=== PATIENT | female | born 1930 | race Caucasian/White ===

== ENCOUNTER → 2017-09-06 | Outpatient (CLI) | payer MEDICARE, OTHER ==
[~2017-09-06] MED LIST: ADULT LOW DOSE81 MG PO; ATORVASTATIN CA40 MG PO; CALCIUM 600 +1 EAC7 PO; CARAFATE 1 GM TA1 G1 PO; Calcium PO; EASY-LAX100 MG PO; FISH OIL 1,0001 EAC5 PO; FISH OIL 1,001000 M2 PO; FISH OIL 500 M1 EAC1 PO; IRON325 PO; MIRALAX17 GM PO; MOBIC15 MG PO; NORVASC10 MG PO; NORVASC5 MG PO; PANTOPRAZOLE SO40 M1 PO; PRILOSEC40 MG PO; RECLAST 55 MG/1002 IV; VITAMIN D3400 UNIT PO; VITAMINC500 PO
== END ==
LOC: M.RAD 10:43
DX: M06.842 Other specified rheumatoid arthritis, left hand (principal); M06.841 Other specified rheumatoid arthritis, right hand; M81.0 Age-related osteoporosis without current pathological fracture

== ENCOUNTER → 2017-09-14 | Outpatient (CLI) | payer MEDICARE, OTHER | LOC: M.RAD 13:25 | DX: M81.0 Age-related osteoporosis without current pathological fracture (principal); M06.4 Inflammatory polyarthropathy; Z78.0 Asymptomatic menopausal state ==

== ENCOUNTER 2019-07-27 10:58 | Inpatient (IN) | payer OTHER ==
[~2019-07-27] VITALS: Ht 157.5 cm; Wt 51.3 kg
[2019-07-27 11:14] VITALS: BP 175/109
[2019-07-27] MEDS ORDERED: PLAQUENIL200 MG PO (11:22)
[2019-07-27] MEDS ORDERED: TOPROL XL25 MG PO (11:22)
[2019-07-27] MEDS ORDERED: MELOXICAM7.5 MG PO (11:22)
[2019-07-27 12:12] LABS: HEMATOCRIT 42.9 % (37.0-47.0); HEMOGLOBIN 14.9 gm/dL (12.0-15.0); MCH 31.7 pg (26.0-34.0); MCHC 34.7 g/dL (28.0-37.0); MCV 91.4 fL (80.0-100.0); MPV 7.7 fl. (7.2-11.1); NUCLEATED RBCS 0 /100WBC; PLATELET COUNT* 277 thou/uL (150-400); RBC 4.69 mil/uL (4.20-5.00); WBC 10.2 thou/uL (4.0-11.0)
[2019-07-27 12:20] LABS: CALCIUM 9.3 mg/dL (8.5-10.1); CREATININE 1.3 mg/dL (0.6-1.3); POTASSIUM 4.5 mmol/L (3.5-5.1)
[2019-07-27 12:21] LABS: APTT 23.3 Seconds (25.0-31.3); INR 1.1; PROTIME 11.7 Seconds (9.20-11.50)
[2019-07-27 12:25] LABS: ALBUMIN 3.5 g/dL (3.4-5.0); TOTAL PROTEIN 7.5 g/dL (6.4-8.2)
[2019-07-27 13:18] LABS: ABSOLUTE LYMPHOCYTES 0.3 thou/uL (0.8-5.3); ABSOLUTE MONOCYTES 0.3 thou/uL (0.0-1.2); ABSOLUTE NEUTROPHILS 9.6 thou/uL (1.6-8.1); PLATELET ESTIMATE ADEQUATE
[2019-07-27 13:19] LABS: ANISOCYTOSIS 1+; POIKILOCYTOSIS 1+
[2019-07-27 17:40] LABS: URINE BLOOD TRACE (Negative); URINE CLARITY CLEAR; URINE COLOR YELLOW; URINE GLUCOSE-RANDOM NEGATIVE (Negative); URINE KETONES TRACE (Negative); URINE LEUKOCYTES-REFLEX TRACE (Negative); URINE NITRITE-REFLEX NEGATIVE (Negative); URINE PROTEIN 1+ (Negative); URINE SPECIFIC GRAVITY 1.025 (1.005-1.030)
[2019-07-27 17:42] LABS: ICTOTEST (BILI CONFIRMATORY) Negative (Negative); URINE BILIRUBIN 1+ (Negative)
[2019-07-27 17:48] LABS: BACTERIA-REFLEX >30 Many /HPF (None Seen); CRYSTALS None Seen /LPF (None Seen); HYALINE CASTS 4-10 Moderate /LPF (None Seen); SQUAMOUS 4-10 Moderate /LPF (0-3); URINE RBC None Seen /HPF (0-2); URINE WBC-REFLEX 6-15 Few /HPF (0-5)
[2019-07-27 18:27] VITALS: BP 115/61
[2019-07-27 19:00] VITALS: BP 153/70
[2019-07-27 22:01] VITALS: BP 183/93
[2019-07-27 23:00] VITALS: BP 157/76
[2019-07-28] VITALS (23 sets, daily range): BP systolic 127–208; BP diastolic 46–109
[2019-07-28] MEDS ORDERED: LATANOPROST 0.2.5 ML OPHTHALMIC (01:40)
[2019-07-28] MEDS ORDERED: COSOPT OCUMETER10 M1 OPHTHALMIC (01:47)
[2019-07-28] MEDS ORDERED: THERA TEARS15 ML OPHTHALMIC (01:49)
[2019-07-28 04:18] LABS: HEMATOCRIT 37.9 % (37.0-47.0); MCH 31.3 pg (26.0-34.0); MCHC 34.2 g/dL (28.0-37.0); MCV 91.4 fL (80.0-100.0); MPV 7.6 fl. (7.2-11.1); RBC 4.15 mil/uL (4.20-5.00); RDW-CV 13.9 % (10.5-14.5); WBC 7.8 thou/uL (4.0-11.0)
[2019-07-28 04:49] LABS: ALBUMIN 2.8 g/dL (3.4-5.0); CREATININE 0.9 mg/dL (0.6-1.3); MAGNESIUM 1.7 mg/dL (1.8-2.4); PHOSPHORUS* 3.5 mg/dL (2.5-4.9); TOTAL BILIRUBIN 0.6 mg/dL (<0.1-1.0); TOTAL PROTEIN 6.1 g/dL (6.4-8.2)
--- NOTE | 2019-07-28 16:46 | CON ---
[address] [address] CONSULTATION Name: KALEY TAPIA Room: [address] IN M.R.#: [id number] Admission: 07/27/19 Attend Phys: Jer Chakraborty Discharge: Date of : 30 Report #: [id number] THIS REPORT FOR: //name// cc: Omi Tinoco MD, Dean L. MD ~ THIS REPORT FOR: //name// CC: Omi Solomon CARDIOLOGY CONSULTATION HISTORY OF PRESENT ILLNESS: The patient is an 88-year-old single white female who I was asked to see in the hospital after she is noted to have an abnormal troponin. The patient has no previous history of heart disease. She stays fairly active. She does have a long history of falling. She apparently has had brief loss of consciousness in the past as well. However, she has no history of heart attack, chest pain, dyspnea or palpitations. The patient was brought to the Emergency Room yesterday by a friend and was noted to have abdominal pain and diarrhea. She felt weak. She was found to have a small bowel obstruction. Cardiology consultation was requested when her troponin is noted to be elevated. PAST MEDICAL HISTORY: She has had previous small bowel obstructions. She had surgery for colon cancer. She has glucose intolerance, hypertension. MEDICATIONS: On admission consist of metoprolol, Plaquenil, Lipitor, amlodipine, Protonix. FAMILY HISTORY: Her father had heart disease. She has a son who had stents. SOCIAL HISTORY: She lives by herself in [place]. Quit smoking years ago. No alcohol abuse. REVIEW OF SYSTEMS: She has had no history of stroke, asthma, peptic ulcer disease, liver disease, kidney disease, psychiatric illness or chronic skin condition. PHYSICAL EXAMINATION: GENERAL: Revealed an elderly frail appearing female, lying in bed. She appeared in mild distress secondary to abdominal pain. VITAL SIGNS: Her blood pressure was 140/80, pulse is 110. She is afebrile. HEENT: She was anicteric. Conjunctivae are pink. Mucous membranes moist. NECK: Veins did not appear distended. CHEST: Clear to auscultation. CARDIOVASCULAR: Regular, tachycardia. No significant murmur. ABDOMEN: Firm, tender to palpation. EXTREMITIES: Had no edema. Posterior tibial pulse 1+ bilaterally. SKIN: Cool and dry. NEUROLOGIC: Nonfocal. RADIOLOGICAL DATA: Her ECG on admission showed a sinus tachycardia, left axis deviation, septal Q-waves noted. She actually had a nuclear stress test in 2015 here at [place] that showed no evidence of ischemia. Previous echocardiogram showed no evidence of decreased ejection fraction. Her workup so far includes the following lab work: Her sodium 138, BUN 19, creatinine 0.9. Liver function studies were normal. Her troponin minimally elevated at 0.39. BNP 519. Her white blood cell count 7.8, hemoglobin 13. Her x-rays yesterday in the Emergency Room, she had an abdominal series that showed small bowel obstruction. Her chest x-ray, hyperinflated lung navas, normal heart size. IMPRESSION AND RECOMMENDATIONS: 1. Small bowel obstruction. Recommend urgent surgery. 2. History of falling. Previous workup showed no significant heart disease. 3. History of colon cancer. 4. Hypertension. The patient has been on calcium jack. 5. Borderline elevated troponin. Suspect non-myocardial infarction related borderline elevation of troponin. I would recommend no further cardiac evaluation or cardiac medications prior to her surgery. I believe the patient is at moderate risk for coronary events with urgent surgery because of her advanced age and risk factors. <ELECTRONICALLY SIGNED> By: Dakotah Dalal MD, [facility] 07/28/19 1646 0908 [id number] Dalal MD, JOZEFC /nt
[2019-07-29] VITALS (24 sets, daily range): BP systolic 122–175; BP diastolic 30–78
[2019-07-29 04:34] LABS: ABSOLUTE LYMPHOCYTES 0.5 thou/uL (0.8-5.3); ABSOLUTE MONOCYTES 0.7 thou/uL (0.0-1.2); ABSOLUTE NEUTROPHILS 9.8 thou/uL (1.6-8.1); BASOPHILS 0.1 %; HEMOGLOBIN 12.5 gm/dL (12.0-15.0); LYMPHOCYTES 4.5 %; MCH 31.6 pg (26.0-34.0); MCHC 33.7 g/dL (28.0-37.0); MCV 93.9 fL (80.0-100.0); MONOCYTES 5.9 %; MPV 7.4 fl. (7.2-11.1); NUCLEATED RBCS 0 /100WBC; PLATELET COUNT* 202 thou/uL (150-400); POLYS 89.5 %; RBC 3.94 mil/uL (4.20-5.00); RDW-CV 13.8 % (10.5-14.5); WBC 10.9 thou/uL (4.0-11.0)
[2019-07-29 04:35] LABS: ALBUMIN 2.6 g/dL (3.4-5.0); CREATININE 0.8 mg/dL (0.6-1.3); TOTAL BILIRUBIN 0.6 mg/dL (<0.1-1.0); TOTAL PROTEIN 5.3 g/dL (6.4-8.2)
[2019-07-30] VITALS (18 sets, daily range): BP systolic 106–170; BP diastolic 25–68
[2019-07-30 04:59] LABS: CALCIUM 8.3 mg/dL (8.5-10.1); CREATININE 0.8 mg/dL (0.6-1.3); PHOSPHORUS* 3.1 mg/dL (2.5-4.9); POTASSIUM 3.6 mmol/L (3.5-5.1)
[2019-07-30 05:30] LABS: HEMATOCRIT 29.8 % (37.0-47.0); MCH 31.7 pg (26.0-34.0); MCHC 33.9 g/dL (28.0-37.0); MCV 93.6 fL (80.0-100.0); MPV 7.7 fl. (7.2-11.1); RBC 3.18 mil/uL (4.20-5.00); RDW-CV 14.1 % (10.5-14.5); WBC 7.8 thou/uL (4.0-11.0)
[2019-07-30 05:38] LABS: HEMOGLOBIN 10.1 gm/dL (12.0-15.0)
[2019-07-31] VITALS (19 sets, daily range): BP systolic 165–234; BP diastolic 78–117
[2019-07-31 09:52] LABS: HEMATOCRIT 34.2 % (37.0-47.0); HEMOGLOBIN 11.3 gm/dL (12.0-15.0); MCH 31.5 pg (26.0-34.0); MCV 95.5 fL (80.0-100.0); MPV 7.3 fl. (7.2-11.1); RBC 3.58 mil/uL (4.20-5.00); RDW-CV 14.5 % (10.5-14.5); WBC 9.4 thou/uL (4.0-11.0)
[2019-07-31 10:02] LABS: CALCIUM 8.6 mg/dL (8.5-10.1); CREATININE 0.6 mg/dL (0.6-1.3); MAGNESIUM 1.5 mg/dL (1.8-2.4); PHOSPHORUS* 2.3 mg/dL (2.5-4.9); POTASSIUM 3.2 mmol/L (3.5-5.1)
--- NOTE | 2019-07-31 16:22 | 2DMMODE ---
[place] [address] 2 D/M-MODE ECHOCARDIOGRAM Name: KALEY TAPIA Madelin [facility] IN .R.#: [id number] Admission: 07/27/19 Attend Phys: Geo Solomon Discharge: Date of : 30 Date of Service: 07/31/19 1621 Report #: [id number] THIS REPORT FOR: cc: Omi Tinoco MD, Dean L. MD Blick,Dakotah Izquierdo MD [facility] ~ THIS REPORT FOR: //name// APPROVED REPORT Study performed: 07/31/2019 09:33:04 EXAM: Comprehensive 2D, Doppler, and color-flow Echocardiogram Patient Location: In-Patient Room #: 006 Status: routine BSA: 1.43 HR: 121 bpm BP: 189/88 mmHg Rhythm: Atrial Fibrillation Other Information Study Quality: Excellent Indications Atrial Fibrillation Hypertension/HDD 2D Dimensions IVSd: 7.77 (7-11mm) LVOT Diam: 18.95 (18-24mm) LVDd: 36.95 mm PWd: 7.12 (7-11mm) Ascending Ao: 27.98 (22-36mm) LVDs: 22.49 (25-40mm) Aortic Root: 29.55 mm Volumes Left Atrial Volume (Systole) LA ESV Index: 46.60 mL/m2 Aortic Valve AoV Peak Jaya.: 1.15 m/s AO Peak Gr.: 5.28 mmHg LVOT Max P.13 mmHg AO Mean Gr.: 3.01 mmHg LVOT Mean P.03 mmHg LVOT Max V: 0.73 m/[place] [address] 2 D/M-MODE ECHOCARDIOGRAM Name: KALEY TAPIA Room: [address] IN ..#: [id number] Admission: 07/27/19 Attend Phys: Geo Solomon Discharge: Date of : 30 Date of Service: 07/31/19 1621 Report #: [id number] AO V2 VTI: 16.52 cm LVOT Mean V: 0.47 m/s ANGELINA (VTI): 2.19 cm2 LVOT V1 VTI: 12.81 cm TDI Medial E' Jaya.: 0.11 m/s Pulmonary Valve PV Peak Jaya.: 0.82 m/s PV Peak Gr.: 2.68 mmHg Tricuspid Valve RAP Estimate: 5.00 mmHg TR Peak Gr.: 40.70 mmHg RVSP: 45.00 mmHg PA Pressure: 45.00 mmHg Left Ventricle The left ventricle is normal size. There is normal LV segmental wall motion. There is normal left ventricular wall thickness. Left ventricular systolic function is normal. The left ventricular ejection fraction is within the normal range. LVEF is 60-65%. Right Ventricle Right ventricle is dilated. The right ventricular systolic function is normal. Atria Left atrium is moderately dilated. Right atrium is dilated. Aortic Valve Mild aortic valve sclerosis. No aortic regurgitation is present. There is no aortic valvular stenosis. Mitral Valve There is mitral annular calcification. Moderate mitral regurgitation. No evidence of mitral valve stenosis. Tricuspid Valve The tricuspid valve is normal in structure. Mild tricuspid regurgitation. estimated pa pressure 30 mm Hg Pulmonic Valve The pulmonary valve is normal in structure. Trace pulmonic regurgitation. Great Vessels The aortic root is normal in size. IVC is normal in size and collapses >50% [place] [address] 2 D/M-MODE ECHOCARDIOGRAM Name: KALEY TAPIA Room: [address] IN .R.#: [id number] Admission: 07/27/19 Attend Phys: Geo Solomon Discharge: Date of : 30 Date of Service: 07/31/19 1621 Report #: [id number] Pericardium There is no pericardial effusion. Left pleural effusion. <Conclusion> LVEF is 60-65%. Left atrium is moderately dilated. Mild aortic valve sclerosis. Moderate mitral regurgitation. Mild tricuspid regurgitation. estimated pa pressure 30 mm Hg Left pleural effusion. <ELECTRONICALLY SIGNED> By: Dakotah Dalal MD, FACC 07/31/19 1621 162 20 Dakotah Dalal MD, [facility] /INF
[2019-08-01] VITALS (13 sets, daily range): BP systolic 120–164; BP diastolic 63–93
--- NOTE | 2019-08-01 09:07 | PATH ---
[facility] [address] [place] [address] PATHOLOGY RPT PROCEDURE Name: WILLIECARMEN Madelin Room: [address] IN M.R.#: [id number] Admission: 07/27/19 Date of : 30 Discharge: Report #: [id number] Path Case #: [id number] [facility] Accession Number: [id number] . 01 Material submitted: . small intestine - SMALL INTESTINE . 01 Clinical history: . Small bowel obstruction. . 02 Diagnosis: Small intestine: - Two segments of benign small intestine with evidence of obstruction in longer segment including luminal dilatation, transmural fresh hemorrhage and acute and chronic serositis. . (ROMAN:[place]; 07/31/2019) QMS 07/31/2019 1103 Local . 02 Electronically signed: . Max Mandel MD, Pathologist NPI- [id number] . 01 Gross description: . Received in formalin labeled "Carmen Tapia, small intestine" is an unoriented segment of bowel measuring 45.7 cm in length. The margins are closed with staple lines. Adjacent to one staple line margin is a segment of pink-carter unremarkable serosa measuring 2.2 cm in length, with a diameter of 2.0 cm. The remainder of the serosa is red-brown and hemorrhagic/dusky and has a diameter of 3.5 cm. The specimen is opened to reveal carter-brown grossly viable mucosa. The mucosa in the dilated area appears more flattened. No areas of obstruction or masses are grossly identified. Also present within the container is an irregular unoriented portion of bowel measuring 3.8 cm in length and 1.2 cm in diameter. Focal areas of rachael are present, without definitive margins identified. Electrical Lineworker sections of the specimen are submitted as follows: A1-A2 staple line margin A3 transition of nondilated to dilated bowel wall A4 additional dilated bowel wall A5 software support representative separate segment of bowel ([facility]; 07/30/2019) [facility] 07/30/2019 1117 Local . 02 Pathologist provided ICD-10: K56.609, K65.8 . 02 CPT . 764509 Specimen Comment: A courtesy copy of this report has been sent to [phone] [address] PATHOLOGY RPT PROCEDURE Name: CARMEN TAPIA Room: [address] IN M.R.#: [id number] Admission: 07/27/19 Date of : 30 Discharge: Report #: [id number] Path Case #: [id number] Specimen Comment: [id number], Specimen Comment: Report sent to , and Specimen Comment: A duplicate report has been generated due to demographic updates. Performed at: [id number] [facility] [address], [place] [id number] MD Jax Ortega MD Phone: [phone] Performed at: [address] [facility] [address], [place], [place] [id number] MD Max Mandel MD Phone: [phone]
[2019-08-01 17:26] LABS: ALBUMIN 2.5 g/dL (3.4-5.0); CALCIUM 8.2 mg/dL (8.5-10.1); CREATININE 0.7 mg/dL (0.6-1.3); POTASSIUM 4.4 mmol/L (3.5-5.1); TOTAL BILIRUBIN 0.8 mg/dL (<0.1-1.0); TOTAL PROTEIN 5.4 g/dL (6.4-8.2)
[2019-08-01 20:41] LABS: ABSOLUTE EOSINOPHILS 0.1 thou/uL (0.0-0.7); ABSOLUTE LYMPHOCYTES 0.6 thou/uL (0.8-5.3); ABSOLUTE MONOCYTES 0.5 thou/uL (0.0-1.2); ABSOLUTE NEUTROPHILS 4.7 thou/uL (1.6-8.1); BASOPHILS 0.8 %; EOSINOPHILS 2.3 %; HEMATOCRIT 31.9 % (37.0-47.0); HEMOGLOBIN 11.2 gm/dL (12.0-15.0); LYMPHOCYTES 10.4 %; MCH 32.1 pg (26.0-34.0); MCHC 35.1 g/dL (28.0-37.0); MCV 91.4 fL (80.0-100.0); MONOCYTES 7.6 %; MPV 7.3 fl. (7.2-11.1); NUCLEATED RBCS 0 /100WBC; PLATELET COUNT* 269 thou/uL (150-400); POLYS 78.9 %; RBC 3.49 mil/uL (4.20-5.00); RDW-CV 14.1 % (10.5-14.5)
[2019-08-02] VITALS (35 sets, daily range): BP systolic 123–172; BP diastolic 59–125
[2019-08-02 04:18] LABS: HEMATOCRIT 28.6 % (37.0-47.0); HEMOGLOBIN 9.9 gm/dL (12.0-15.0); MCH 31.8 pg (26.0-34.0); MCHC 34.5 g/dL (28.0-37.0); MCV 92.3 fL (80.0-100.0); RBC 3.1 mil/uL (4.20-5.00); WBC 6.3 thou/uL (4.0-11.0)
[2019-08-02 10:20] LABS: CALCIUM 8.1 mg/dL (8.5-10.1); CREATININE 0.8 mg/dL (0.6-1.3); MAGNESIUM 1.7 mg/dL (1.8-2.4); PHOSPHORUS* 2.5 mg/dL (2.5-4.9); POTASSIUM 3.8 mmol/L (3.5-5.1)
[2019-08-03] VITALS: BP 116/74
[2019-08-03 04:00] VITALS: BP 148/93
[2019-08-03 08:00] VITALS: BP 155/86
[2019-08-03 10:44] LABS: ABSOLUTE EOSINOPHILS 0.2 thou/uL (0.0-0.7); ABSOLUTE LYMPHOCYTES 0.6 thou/uL (0.8-5.3); ABSOLUTE MONOCYTES 0.5 thou/uL (0.0-1.2); ABSOLUTE NEUTROPHILS 5.5 thou/uL (1.6-8.1); BASOPHILS 0.5 %; EOSINOPHILS 2.8 %; HEMATOCRIT 31.8 % (37.0-47.0); HEMOGLOBIN 10.9 gm/dL (12.0-15.0); LYMPHOCYTES 8.4 %; MCH 31.5 pg (26.0-34.0); MCHC 34.3 g/dL (28.0-37.0); MCV 91.7 fL (80.0-100.0); MONOCYTES 7.5 %; MPV 7.4 fl. (7.2-11.1); NUCLEATED RBCS 0 /100WBC; PLATELET COUNT* 322 thou/uL (150-400); POLYS 80.8 %; RBC 3.46 mil/uL (4.20-5.00); RDW-CV 13.9 % (10.5-14.5); WBC 6.8 thou/uL (4.0-11.0)
[2019-08-03 11:11] LABS: ALBUMIN 2.2 g/dL (3.4-5.0); CALCIUM 7.9 mg/dL (8.5-10.1); CREATININE 0.8 mg/dL (0.6-1.3); POTASSIUM 3.4 mmol/L (3.5-5.1); TOTAL BILIRUBIN 0.5 mg/dL (<0.1-1.0); TOTAL PROTEIN 5.4 g/dL (6.4-8.2)
[2019-08-03 12:00] VITALS: BP 145/53
[2019-08-03 16:00] VITALS: BP 153/57
[2019-08-03 20:07] VITALS: BP 127/53
[2019-08-04] VITALS (165 sets, daily range): BP systolic 103–151; BP diastolic 34–95
[2019-08-04 10:10] LABS: ABSOLUTE EOSINOPHILS 0.2 thou/uL (0.0-0.7); ABSOLUTE LYMPHOCYTES 0.6 thou/uL (0.8-5.3); ABSOLUTE MONOCYTES 0.5 thou/uL (0.0-1.2); ABSOLUTE NEUTROPHILS 3.3 thou/uL (1.6-8.1); BASOPHILS 0.9 %; EOSINOPHILS 3.4 %; HEMATOCRIT 23.7 % (37.0-47.0); LYMPHOCYTES 12.6 %; MCH 31.5 pg (26.0-34.0); MCHC 34.1 g/dL (28.0-37.0); MCV 92.4 fL (80.0-100.0); MONOCYTES 11.8 %; MPV 7.4 fl. (7.2-11.1); NUCLEATED RBCS 0 /100WBC; POLYS 71.3 %; RBC 2.57 mil/uL (4.20-5.00); RDW-CV 13.8 % (10.5-14.5); WBC 4.6 thou/uL (4.0-11.0)
[2019-08-04 10:11] LABS: HEMOGLOBIN 8.1 gm/dL (12.0-15.0); PLATELET COUNT* 225 thou/uL (150-400)
[2019-08-04 10:28] LABS: ALBUMIN 1.7 g/dL (3.4-5.0); CALCIUM 7.1 mg/dL (8.5-10.1); CREATININE 0.7 mg/dL (0.6-1.3); MAGNESIUM 1.5 mg/dL (1.8-2.4); POTASSIUM 3.8 mmol/L (3.5-5.1); TOTAL BILIRUBIN 0.3 mg/dL (<0.1-1.0); TOTAL PROTEIN 4.4 g/dL (6.4-8.2)
--- NOTE | 2019-08-04 14:11 | OP ---
[address] [address] OPERATIVE REPORT Name: KALEY TAPIA Room: [address] IN M.R.#: [id number] Admission: 07/27/19 Attend Phys: Jer Chakraborty Discharge: Date of : 30 Report #: [id number] THIS REPORT FOR: //name// cc: Omi Tinoco MD, Dean L. MD ~ THIS REPORT FOR: //name// CC: Omi Solomon DATE OF SERVICE: 07/28/2019 SURGEON: Kt Choe DO DINING SERVICE SUPERVISOR: Dr. Clari Fuller. PREOPERATIVE DIAGNOSIS: Small bowel obstruction. POSTOPERATIVE DIAGNOSIS: Small bowel obstruction. PROCEDURE: Exploratory laparotomy, lysis of adhesions, small bowel resection, small bowel reanastomosis. INDICATIONS: The patient is an 88-year-old female who presented to the Emergency Department with complaints of abdominal pain. She states her bowel function seized 2-3 days prior to presentation. She has a history of a prior colon resection and hysterectomy. CT scan was consistent with a high-grade bowel obstruction. Physical exam revealed a soft, but distended and diffusely tender abdomen. Surgery was indicated. Risks and benefits were explained in detail. Risks, benefits, and alternatives were discused. Risks of bleeding, infection, hernia, damage to nearby structures, small bowel resection, anastomotic leak, DVT, PE, pneumonia, stroke, ND and were reviewed. DESCRIPTION OF PROCEDURE: The patient was taken to the operating theater and placed in the supine position. General anesthesia was induced without complication. Preoperative antibiotics were given and bilateral SCDs were placed. The abdomen was prepped and draped in the standard sterile fashion. Timeout was performed and all were in agreement. A 10 blade scalpel was used to make a midline celiotomy incision. Dissection was carried down to the midline fascia using electrocautery. The fascia was scored with cautery and elevated. The abdomen was entered bluntly. There were several dense adhesions to her anterior abdominal wall. These were taken down with sharp dissection using Metzenbaum scissors. Once the anterior abdominal wall adhesions were taken down with sharp dissection, [place] [address] OPERATIVE REPORT Name: KALEY TAPIA Room: [address] IN [facility].#: [id number] Admission: 07/27/19 Attend Phys: Jer Chakraborty Discharge: Date of : 30 Report #: [id number] remainder of the incision was opened. Next, the small bowel was run from the ligament of Treitz to the cecum. The small bowel was grossly distended proximally. There was some reactive fluid in all four quadrants of her abdomen. We were able to follow the distended bowel distally to a transition point in her left lower quadrant. There was an adehsive band causing the obstruction. The lysis of this adhesion was performed and the remainder of the small bowel was run to the cecum. No small bowel injuries were present. No enterotomies were made. The mesentery was intact. The small bowel was again run from the ligament of Treitz to the cecum. The area where the transition point was, had a circumferential white and black band concerning for nectrotic intestine. The decision was made to do a small bowel resection. This was done using a [id number] functional end-to-end anastomosis using KALPESH staplers. Mesenteric window was made proximal and distal to the area of concern and the small bowel was transected using a KALPESH stapler with a purple load proximal and distal. Next, the mesentery was taken using a LigaSure device. Next, the specimen was removed from the surgical field and the small bowel was lined up for anastomosis. A crotch stitch was placed using 3-0 silk. The two corners of the stapled bowel were grasped with Allises and the stapled corners were cut off using Metzenbaum scissors. The common channel was created using a KALPESH purple load stapler. Next, the common channel opening was grasped with Allis clamps and closed using a TA stapler. The TA staple line was oversewn using multiple 3-0 silks in a Lembert fashion. The anastomosis was then palpated and was patent. There was a very small area on the proximal side of the anastomosis that appeared little darker than the surrounding tissue but this was intermittent and when we reevaluated it, the area regained its pink color. It was warm to the touch. Gloves were changed and the abdominal cavity was irrigated with warm saline until the fluid ran clear and then it was suctioned out. The abdomen was hemostatic. Next, the fascia was closed using a #1 PDS suture in a running fashion. The midline wound was irrigated. The skin was closed with rachael. This concluded the procedure. All sponge, needle and instrument counts were correct x 2. ESTIMATED BLOOD LOSS: Less than 5 mL. FINDINGS: Small bowel obstruction, adhesions. [address] [address] OPERATIVE REPORT Name: KALEY TAPIA Room: [address] IN M.R.#: [id number] Admission: 07/27/19 Attend Phys: Jer Chakraborty Discharge: Date of : 30 Report #: [id number] SPECIMEN: Small bowel. DRAINS: None. ANESTHESIA: General endotracheal anesthesia. DISPOSITION: The patient was extubated in the operating theater and taken back to the ICU in stable condition. <ELECTRONICALLY SIGNED> By: Kt Choe DO 08/04/19 1411 2141 220Kt Choe DO /nt
[2019-08-05 04:05] LABS: ABSOLUTE BASOPHILS 0.1 thou/uL (0.0-0.2); ABSOLUTE EOSINOPHILS 0.2 thou/uL (0.0-0.7); ABSOLUTE LYMPHOCYTES 0.7 thou/uL (0.8-5.3); ABSOLUTE MONOCYTES 0.6 thou/uL (0.0-1.2); ABSOLUTE NEUTROPHILS 3.7 thou/uL (1.6-8.1); EOSINOPHILS 3.4 %; HEMATOCRIT 24.1 % (37.0-47.0); LYMPHOCYTES 12.4 %; MCH 30.7 pg (26.0-34.0); MCHC 33.2 g/dL (28.0-37.0); MCV 92.5 fL (80.0-100.0); MONOCYTES 12.3 %; MPV 7.9 fl. (7.2-11.1); NUCLEATED RBCS 0 /100WBC; PLATELET COUNT* 218 thou/uL (150-400); POLYS 70.9 %; RDW-CV 13.8 % (10.5-14.5); WBC 5.3 thou/uL (4.0-11.0)
[2019-08-05 04:17] LABS: CALCIUM 7.2 mg/dL (8.5-10.1); MAGNESIUM 1.5 mg/dL (1.8-2.4); PHOSPHORUS* 2.9 mg/dL (2.5-4.9); POTASSIUM 4.3 mmol/L (3.5-5.1)
[2019-08-05 07:00] VITALS: BP 134/44
[2019-08-05 12:00] VITALS: BP 135/42
--- NOTE | 2019-08-05 13:19 | CARD ---
[facility] [address] [place] [address] CARDIAC CATH REPORT Name: KALEY TAPIA Room: [address] IN M.R.#: [id number] Admission: 07/27/19 Attend Phys: Jer Chakraborty Discharge: Date of : 30 Report #: [id number] THIS REPORT FOR: //name// cc: Omi Tinoco MD, Dean L. MD ~ THIS REPORT FOR: //name// CC: Omi Solomon DATE OF SERVICE: 08/04/2019 TITLE OF PROCEDURE: Direct current cardioversion of atrial tachycardia. INDICATIONS: Direct current cardioversion was requested in this patient with a history of atrial tachycardia. DESCRIPTION OF PROCEDURE: The patient had remained in persistent atrial tachycardia despite Eliquis and sotalol. It was felt that the risk of the HARPER outweighed any benefit because of her advanced age and recent surgery. It was decided to proceed with direct current cardioversion. Hands free patches were applied in anterior and posterior location. The patient was given 1 mg of Versed for sedation. 100 joules of direct current energy using synchronized energy was performed. The patient was noted to convert from atrial tachycardia to sinus bradycardia. The patient tolerated the procedure well. IMPRESSION: Successful direct current cardioversion of atrial tachycardia to sinus bradycardia. <ELECTRONICALLY SIGNED> By: Dakotah Dalal MD, [facility] 08/05/19 1319 0842 0852Daed Dalal MD, [facility] /nt
[2019-08-05 18:20] VITALS: BP 138/48
[2019-08-05 22:16] VITALS: BP 138/44
[2019-08-05 23:54] VITALS: BP 133/49
[2019-08-06 03:36] LABS: HEMATOCRIT 24.5 % (37.0-47.0); HEMOGLOBIN 8.4 gm/dL (12.0-15.0); MCH 31.5 pg (26.0-34.0); MCHC 34.1 g/dL (28.0-37.0); MCV 92.2 fL (80.0-100.0); RBC 2.65 mil/uL (4.20-5.00); RDW-CV 14.2 % (10.5-14.5); WBC 6.2 thou/uL (4.0-11.0)
[2019-08-06 03:48] LABS: CALCIUM 7.4 mg/dL (8.5-10.1); CREATININE 1.1 mg/dL (0.6-1.3); MAGNESIUM 1.7 mg/dL (1.8-2.4); POTASSIUM 4.1 mmol/L (3.5-5.1)
[2019-08-06 12:00] VITALS: BP 164/47
[2019-08-06 13:36] LABS: ABSOLUTE BASOPHILS 0.1 thou/uL (0.0-0.2); ABSOLUTE EOSINOPHILS 0.1 thou/uL (0.0-0.7); ABSOLUTE LYMPHOCYTES 0.5 thou/uL (0.8-5.3); ABSOLUTE MONOCYTES 0.7 thou/uL (0.0-1.2); ABSOLUTE NEUTROPHILS 6.1 thou/uL (1.6-8.1); BASOPHILS 1.4 %; EOSINOPHILS 1.2 %; HEMATOCRIT 24.7 % (37.0-47.0); HEMOGLOBIN 8.3 gm/dL (12.0-15.0); LYMPHOCYTES 7.1 %; MCH 31.1 pg (26.0-34.0); MCHC 33.6 g/dL (28.0-37.0); MCV 92.5 fL (80.0-100.0); MONOCYTES 9.3 %; MPV 8.4 fl. (7.2-11.1); NUCLEATED RBCS 0 /100WBC; PLATELET COUNT* 260 thou/uL (150-400); RBC 2.67 mil/uL (4.20-5.00); RDW-CV 14.2 % (10.5-14.5); WBC 7.5 thou/uL (4.0-11.0)
[2019-08-06 13:44] LABS: ALBUMIN 1.9 g/dL (3.4-5.0); CALCIUM 7.7 mg/dL (8.5-10.1); POTASSIUM 4.3 mmol/L (3.5-5.1); TOTAL BILIRUBIN 0.4 mg/dL (<0.1-1.0); TOTAL PROTEIN 5.1 g/dL (6.4-8.2)
[2019-08-06 17:01] VITALS: BP 186/58
[2019-08-06 20:00] VITALS: BP 145/41
[2019-08-07] VITALS (7 sets, daily range): BP systolic 141–168; BP diastolic 42–72
[2019-08-07 16:42] LABS: ABSOLUTE BASOPHILS 0.1 thou/uL (0.0-0.2); ABSOLUTE EOSINOPHILS 0.1 thou/uL (0.0-0.7); ABSOLUTE LYMPHOCYTES 0.6 thou/uL (0.8-5.3); ABSOLUTE MONOCYTES 0.7 thou/uL (0.0-1.2); ABSOLUTE NEUTROPHILS 5.7 thou/uL (1.6-8.1); BASOPHILS 1.2 %; EOSINOPHILS 1.9 %; HEMATOCRIT 24.3 % (37.0-47.0); HEMOGLOBIN 8.5 gm/dL (12.0-15.0); LYMPHOCYTES 8.2 %; MCH 33.2 pg (26.0-34.0); MCHC 34.9 g/dL (28.0-37.0); MCV 95.2 fL (80.0-100.0); MONOCYTES 10.2 %; NUCLEATED RBCS 0 /100WBC; PLATELET COUNT* 265 thou/uL (150-400); POLYS 78.5 %; RBC 2.56 mil/uL (4.20-5.00); RDW-CV 14.9 % (10.5-14.5); WBC 7.2 thou/uL (4.0-11.0)
[2019-08-07 16:44] LABS: CALCIUM 7.7 mg/dL (8.5-10.1); POTASSIUM 3.9 mmol/L (3.5-5.1)
[2019-08-08 03:52] VITALS: BP 188/66
[2019-08-08 05:50] VITALS: BP 174/62
[2019-08-08 07:43] LABS: ABSOLUTE EOSINOPHILS 0.1 thou/uL (0.0-0.7); ABSOLUTE LYMPHOCYTES 0.6 thou/uL (0.8-5.3); ABSOLUTE MONOCYTES 0.7 thou/uL (0.0-1.2); ABSOLUTE NEUTROPHILS 6.4 thou/uL (1.6-8.1); BASOPHILS 0.4 %; EOSINOPHILS 0.7 %; HEMOGLOBIN 8.2 gm/dL (12.0-15.0); LYMPHOCYTES 7.8 %; MCH 31.3 pg (26.0-34.0); MCHC 34.3 g/dL (28.0-37.0); MCV 91.2 fL (80.0-100.0); MONOCYTES 8.5 %; MPV 7.8 fl. (7.2-11.1); NUCLEATED RBCS 0 /100WBC; PLATELET COUNT* 300 thou/uL (150-400); POLYS 82.6 %; RBC 2.63 mil/uL (4.20-5.00); RDW-CV 14.3 % (10.5-14.5); WBC 7.8 thou/uL (4.0-11.0)
[2019-08-08 07:50] LABS: CALCIUM 7.9 mg/dL (8.5-10.1); CREATININE 0.9 mg/dL (0.6-1.3); POTASSIUM 3.5 mmol/L (3.5-5.1)
[2019-08-08 09:55] VITALS: BP 183/60
[2019-08-08 11:56] VITALS: BP 160/49
[2019-08-08 16:20] VITALS: BP 164/58
[2019-08-08 20:00] VITALS: BP 159/49
[2019-08-09] VITALS: BP 168/45
[2019-08-09 04:00] VITALS: BP 170/52
[2019-08-09 05:22] LABS: URINE BILIRUBIN NEGATIVE (Negative); URINE BLOOD TRACE (Negative); URINE CLARITY CLEAR; URINE COLOR YELLOW; URINE GLUCOSE-RANDOM NEGATIVE (Negative); URINE KETONES NEGATIVE (Negative); URINE LEUKOCYTES-REFLEX NEGATIVE (Negative); URINE NITRITE-REFLEX NEGATIVE (Negative); URINE PROTEIN TRACE (Negative)
[2019-08-09 06:35] LABS: ABSOLUTE EOSINOPHILS 0.1 thou/uL (0.0-0.7); ABSOLUTE LYMPHOCYTES 0.5 thou/uL (0.8-5.3); ABSOLUTE MONOCYTES 0.5 thou/uL (0.0-1.2); ABSOLUTE NEUTROPHILS 5.2 thou/uL (1.6-8.1); BASOPHILS 0.5 %; EOSINOPHILS 1.7 %; HEMATOCRIT 22.4 % (37.0-47.0); HEMOGLOBIN 7.7 gm/dL (12.0-15.0); LYMPHOCYTES 7.9 %; MCH 31.3 pg (26.0-34.0); MCHC 34.2 g/dL (28.0-37.0); MCV 91.5 fL (80.0-100.0); MONOCYTES 7.8 %; MPV 7.5 fl. (7.2-11.1); NUCLEATED RBCS 0 /100WBC; PLATELET COUNT* 295 thou/uL (150-400); POLYS 82.1 %; RBC 2.45 mil/uL (4.20-5.00); RDW-CV 14.4 % (10.5-14.5); WBC 6.3 thou/uL (4.0-11.0)
[2019-08-09 06:49] LABS: CALCIUM 8.1 mg/dL (8.5-10.1); CREATININE 0.8 mg/dL (0.6-1.3); POTASSIUM 3.6 mmol/L (3.5-5.1)
[2019-08-09 12:24] LABS: BE -4.2 mmol/L (-2 to +3); PCO2 26.9 mmHg (35.0-45.0); PO2 77.3 mmHg (75.0-100.0); pH 7.462 (7.340-7.450)
[2019-08-09 12:31] VITALS: BP 172/57
--- NOTE | 2019-08-09 13:44 | EKG ---
[place] [address] ELECTROCARDIOGRAM REPORT Name: KALEY TAPIA Room: [address] ADM IN .R.#: [id number] Admission: 07/27/19 Attend Phys: Geo Solomon Discharge: Date of : 30 Date of Service: 07/31/19 0916 Report #: [id number] THIS REPORT FOR: cc: Omi Tinoco MD, Dean L. MD Blick,Dakotah Izquierdo MD [facility] ~ THIS REPORT FOR: //name// [facility] Test Date: 2019-07-31 Test Time: 09:16:04 Pat Name: KALEY TAPIA Department: Room: [address] Gender: F Paring Machine Operator: : 1930 Requested By: Dakotah Dalal Order Number: [id number] Reading MD: Dakotah Daall Measurements Intervals [place] Rate: 122 P: 0 NC: 77 QRS: -35 QRSD: 90 T: 68 QT: 348 QTc: 496 Interpretive Statements atrial flutter Probable LVH with secondary repol abnrm Borderline prolonged QT interval Electronically Signed On 07-31-2019 11:27:14 LIGHT ARMORED VEHICLE OFFICER by Dakotah Dalal [email or web address] <ELECTRONICALLY SIGNED> By: Dakotah Dalal MD, [facility] 07/31/19 1127 5 5 Dakotah Dalal MD, [facility] /EPI
--- NOTE | 2019-08-09 13:44 | EKG ---
[place] [address] ELECTROCARDIOGRAM REPORT Name: KALEY TAPIA Room: [address] ADM IN .R.#: [id number] Admission: 07/27/19 Attend Phys: Geo Solomon Discharge: Date of : 30 Date of Service: 07/30/19 1341 Report #: [id number] THIS REPORT FOR: cc: Omi Tinoco MD, Dean L. MD Blick,Dakotah Izquierdo MD [facility] ~ THIS REPORT FOR: //name// [facility] Test Date: 2019-07-30 Test Time: 13:41:40 Pat Name: KALEY TAPIA Department: Room: [address] Gender: F Jewelry Sales Coordinator: [facility] : 1930 Requested By: Geo Solomon Order Number: [id number] Reading MD: Dakotah Dalal Measurements Intervals [place] Rate: 73 P: [place]: QRS: -41 QRSD: 89 T: -5 QT: 412 QTc: 454 Interpretive Statements Atrial flutter Abnormal R-wave progression, late transition Inferior infarct, old Compared to ECG 07/29/2019 11:18:38 rate has slowed Myocardial infarct finding still present ST (T wave) deviation still present Electronically Signed On 07-31-2019 11:14:07 ORACLE PROGRAMMER ANALYST by Dakotah Dalal [email or web address] <ELECTRONICALLY SIGNED> By: Dakotah Dalal MD, [facility] 07/31/19 1114 1341 1341 Dakotah Dalal MD, [facility] /EPI
--- NOTE | 2019-08-09 13:44 | EKG ---
[place] [address] ELECTROCARDIOGRAM REPORT Name: KALEY TAPIA Room: [address] ADM IN .R.#: [id number] Admission: 07/27/19 Attend Phys: Geo Solomon Discharge: Date of : 30 Date of Service: 08/01/19 1039 Report #: [id number] THIS REPORT FOR: cc: Omi Tinoco MD, Dean L. MD Blick,Dakotah Izquierdo MD [facility] ~ THIS REPORT FOR: //name// [facility] Test Date: 2019-08-01 Test Time: 10:39:55 Pat Name: KALEY TAPIA Department: Room: [address] Gender: F Wreath And Garland Maker: CS : 1930 Requested By: Dakotah Dalal Order Number: [id number] Reading MD: Dakotah Dalal Measurements Intervals [place] Rate: 118 P: [place]: QRS: -32 QRSD: 84 T: 27 QT: 353 QTc: 495 Interpretive Statements Junctional tachycardia septal q waves noted Compared to ECG 07/31/2019 09:16:04 no change Electronically Signed On 08-01-2019 11:29:53 WAREHOUSE INCENTIVE SELECTOR by Dakotah Dalal [email or web address] <ELECTRONICALLY SIGNED> By: Dakotah Dalal MD, FAC 08/01/19 1129 1039 1039 Dakotah Dalal MD, [facility] /EPI
--- NOTE | 2019-08-09 13:44 | EKG ---
[place] [address] ELECTROCARDIOGRAM REPORT Name: KALEY TAPIA Room: [address] ADM IN .R.#: [id number] Admission: 07/27/19 Attend Phys: Geo Solomon Discharge: Date of : 30 Date of Service: 08/02/19 0908 Report #: [id number] THIS REPORT FOR: cc: Omi Tinoco MD, Dean L. MD Blick,Dakotah Izquierdo MD [facility] ~ THIS REPORT FOR: //name// [facility] Test Date: 2019-08-02 Test Time: 09:08:04 Pat Name: KALEY TAPIA Department: Room: [address] Gender: F Automatic Screwmaker: CS : 1930 Requested By: Dakotah Dalal Order Number: [id number] Reading MD: Dakotah Daall Measurements Intervals [place] Rate: 117 P: 0 MD: 92 QRS: -30 QRSD: 90 T: 17 QT: 340 QTc: 475 Interpretive Statements atrial tachycardia Left axis deviation Probable anteroseptal infarct, old Compared to ECG 08/01/2019 10:39:55 no change Electronically Signed On 08-02-2019 11:41:16 ORTHODONTIC TREATMENT COORDINATOR by Dakotah Dalal [email or web address] <ELECTRONICALLY SIGNED> By: Dakotah Dalal MD, [facility] 08/02/19 1141 7 0908 Dakotah Dalal MD, [facility] /EPI
--- NOTE | 2019-08-09 13:45 | EKG ---
[place] [address] ELECTROCARDIOGRAM REPORT Name: KALEY TAPIA Room: [address] ADM IN .R.#: [id number] Admission: 07/27/19 Attend Phys: Geo Solomon Discharge: Date of : 30 Date of Service: 08/06/19 1705 Report #: [id number] THIS REPORT FOR: cc: Omi Tinoco MD, Dean L. MD Holkins,Eddie Khan MD [facility] ~ THIS REPORT FOR: //name// [facility] Test Date: 2019-08-06 Test Time: 17:05:21 Pat Name: KALEY TAPIA Department: Room: [facility] Gender: F Contracts Director: : 1930 Requested By: Dakotah Dalal Order Number: [id number] Reading MD: Eddie Ghosh Measurements Intervals [place] Rate: 63 P: -71 SD: 151 QRS: -23 QRSD: 99 T: 0 QT: 445 QTc: 456 Interpretive Statements Sinus or ectopic atrial rhythm Borderline left axis deviation Baseline wander in lead(s) V1 Compared to ECG 08/02/2019 09:08:04 Ectopic atrial rhythm now present Ectopic atrial tachycardia, unifocal no longer present Myocardial infarct finding no longer present Electronically Signed On 08-07-2019 16:04:52 PARAPROFESSIONAL AIDE TEACHER by Eddie Ghosh [email or web address] <ELECTRONICALLY SIGNED> By: Eddie Ghosh MD, [facility] 08/07/19 1604 1705 1705 Eddie Ghosh MD, [facility] /EPI
--- NOTE | 2019-08-09 13:45 | EKG ---
[place] [address] ELECTROCARDIOGRAM REPORT Name: KALEY TAPIA Room: [address] ADM IN M.R.#: [id number] Admission: 07/27/19 Attend Phys: Geo Solomon Discharge: Date of : 30 Date of Service: 08/07/19 0959 Report #: [id number] THIS REPORT FOR: cc: Omi Tinoco MD, Dean L. MD Holkins,Eddie Khan MD [facility] ~ THIS REPORT FOR: //name// [facility] Test Date: 2019-08-07 Test Time: 09:59:46 Pat Name: KALEY TAPIA Department: Room: [address] Gender: F Leak Inspector: : 1930 Requested By: Dakotah Dalal Order Number: [id number] Reading MD: Eddie Ghosh Measurements Intervals [place] Rate: 63 P: [place]: QRS: -30 QRSD: 98 T: -8 QT: 435 QTc: 446 Interpretive Statements Atrial fibrillation Left axis deviation Borderline T abnormalities, inferior leads Compared to ECG 08/02/2019 09:08:04 T-wave abnormality now present Ectopic atrial tachycardia, unifocal no longer present Myocardial infarct finding no longer present Electronically Signed On 2-10-2020 16:13:46 MULTIPLE SCLEROSIS NURSE by Eddie Ghosh [email or web address] <ELECTRONICALLY SIGNED> By: Eddie Ghosh MD, [facility] 08/07/19 1613 0959 0959 Eddie Ghosh MD, [facility] /EPI
--- NOTE | 2019-08-09 13:52 | EKG ---
[place] [address] ELECTROCARDIOGRAM REPORT Name: KALEY TAPIA Room: [address] ADM IN .R.#: [id number] Admission: 07/27/19 Attend Phys: Geo Solomon Discharge: Date of : 30 Date of Service: 07/29/19 1118 Report #: [id number] THIS REPORT FOR: cc: Omi Tinoco MD, Dean L. MD Blick,Dakotah Izquierdo MD [facility] ~ THIS REPORT FOR: //name// [facility] ED Test Date: 2019-07-29 Test Time: 11:18:38 Pat Name: KALEY TAPIA Department: Room: [address] Gender: F Manager Site: ENA : 1930 Requested By: Kt Choe Order Number: [id number] Reading MD: Dakotah Dalal Measurements Intervals [place] Rate: 123 P: OR: QRS: -36 QRSD: 84 T: 34 QT: 335 QTc: 480 Interpretive Statements Atrial tachycardia Left axis deviation Anteroseptal infarct, old ST depression, probably rate related Compared to ECG 07/27/2019 12:37:04 Myocardial infarct finding still present Electronically Signed On 07-29-2019 13:10:28 HEAD HOUSEKEEPER by Dakotah Dalal [email or web address] <ELECTRONICALLY SIGNED> By: Dakotah Dalal MD, [facility] 07/29/19 1310 1118 1118 Dakotah Dalal MD, [facility] /EPI
--- NOTE | 2019-08-09 13:52 | EKG ---
[place] [address] ELECTROCARDIOGRAM REPORT Name: KALEY TAPIA Room: [address] IN [facility].#: [id number] Admission: 07/27/19 Attend Phys: Geo Solomon Discharge: Date of : 30 Date of Service: 07/27/19 1237 Report #: [id number] THIS REPORT FOR: cc: Omi Tinoco MD, Dean L. MD Liston, Michael J. MD [facility] ~ THIS REPORT FOR: //name// [facility] ED Test Date: 2019-07-27 Test Time: 12:37:04 Pat Name: KALEY TAPIA Department: Room: Gender: F Webbing Inspector: : 1930 Requested By: Zuleyma Estrada Order Number: [id number] MD: Mahamed Sanford Measurements Intervals [place] Rate: 119 P: 196 [place]: 80 QRS: -54 QRSD: 107 T: QT: 341 QTc: 480 Interpretive Statements Sinus or ectopic atrial tachycardia Atrial premature complex Inferior infarct, old Anterior infarct, old Compared to ECG 04/04/2015 08:12:26 Atrial premature complex(es) now present Myocardial infarct finding now present Sinus rhythm no longer present Electronically Signed On 07-27-2019 15:25:16 RECEIVING SPECIALIST by Mahamed Sanford [email or web address] <ELECTRONICALLY SIGNED> By: Mahamed Sanford MD, [facility] 07/27/19 1525 1237 1237 Mahamed Sanford MD, [facility] /EPI
[2019-08-09 16:59] VITALS: BP 150/47
[2019-08-09 17:25] LABS: CALCIUM 7.7 mg/dL (8.5-10.1); CREATININE 0.9 mg/dL (0.6-1.3); POTASSIUM 3.9 mmol/L (3.5-5.1); TOTAL BILIRUBIN 0.3 mg/dL (<0.1-1.0); TOTAL PROTEIN 5.6 g/dL (6.4-8.2)
[2019-08-09 20:18] VITALS: BP 161/50
[2019-08-10] VITALS: BP 154/54
[2019-08-10 04:00] VITALS: BP 170/57
[2019-08-10 04:18] LABS: HEMATOCRIT 24.5 % (37.0-47.0); HEMOGLOBIN 8.3 gm/dL (12.0-15.0); MCH 31.4 pg (26.0-34.0); MCV 92.3 fL (80.0-100.0); MPV 7.9 fl. (7.2-11.1); RBC 2.66 mil/uL (4.20-5.00); RDW-CV 14.5 % (10.5-14.5); WBC 7.2 thou/uL (4.0-11.0)
[2019-08-10 04:46] LABS: CALCIUM 8.3 mg/dL (8.5-10.1); CREATININE 0.9 mg/dL (0.6-1.3); MAGNESIUM 1.8 mg/dL (1.8-2.4); TOTAL BILIRUBIN 0.3 mg/dL (<0.1-1.0); TOTAL PROTEIN 5.6 g/dL (6.4-8.2)
[2019-08-10 08:09] VITALS: BP 151/43
[2019-08-10] MEDS ORDERED: PEPCID20 MG PO (10:13)
[2019-08-10] MEDS ORDERED: ACETAMINOPHEN325 M1 PO (10:13)
[2019-08-10] MEDS ORDERED: COZAAR 50 MG TA50 M1 PO (10:13)
[2019-08-10] MEDS ORDERED: COLACE 100 MG100 MG PO (10:13)
[2019-08-10] MEDS ORDERED: MIRALAX17 GM PO (10:13)
[2019-08-10] MEDS ORDERED: XARELTO20 MG PO (10:13)
[2019-08-10] MEDS ORDERED: PROPAFENONE 15150 MG PO (10:13)
[2019-08-10 10:49] VITALS: BP 151/43
--- NOTE | 2019-08-10 14:32 | EKG ---
[place] [address] ELECTROCARDIOGRAM REPORT Name: KALEY TAPIA Room: [address] IN M.R.#: [id number] Admission: 07/27/19 Attend Phys: Geo Solomon Discharge: 08/10/19 Date of : 30 Date of Service: 08/04/19 0849 Report #: [id number] THIS REPORT FOR: cc: Omi Tinoco MD, Dean L. MD Liston, Michael J. MD [facility] ~ THIS REPORT FOR: //name// [facility] Test Date: 2019-08-04 Test Time: 08:49:24 Pat Name: KALEY TAPIA Department: Room: [address] Gender: F Employee Health Rn: : 1930 Requested By: Dakotah Dalal Order Number: [id number] Yeni BOSS: Mahamed Sanford Measurements Intervals [place] Rate: P: CO: QRS: QRSD: T: QT: QTc: Interpretive Statements Compared to ECG 08/02/2019 09:08:04 Ectopic atrial tachycardia, unifocal no longer present Left-axis deviation no longer present Myocardial infarct finding no longer present Electronically Signed On 08-10-2019 14:31:34 SIEBEL SOLUTION ARCHITECT by Mahamed Sanford [email or web address] <ELECTRONICALLY SIGNED> By: Mahamed Sanford MD, [facility] 08/10/19 1431 0849 0849 Mahamed Sanford MD, [facility] /EPI
== END 2019-08-10 13:10 | DRG 853 ==
LOC: M.ERS 10:58 → M.ICU 16:13 → M.TBA-ER 16:13 → M.ICU 16:13 → M.TBA-ER 17:18 → M.ICU 18:48 → M.2W 08-06 10:57
PROVIDERS: Family Medicine; Internal Medicine; Internal Medicine Cardiovascular Disease; Nurse Practitioner Family; Surgery; ADMIT Internal Medicine
PROC: 0DN80ZZ Release Small Intestine, Open Approach (ICD-10-PCS; principal; 2019-07-28)
PROC: 0DB80ZZ Excision of Small Intestine, Open Approach (ICD-10-PCS; principal; 2019-07-28)
PROC: 0D9670Z Drainage of Stomach with Drainage Device, Via Natural or Artificial Opening (ICD-10-PCS; principal; 2019-07-28)
PROC: 0DNU0ZZ Release Omentum, Open Approach (ICD-10-PCS; principal; 2019-07-28)
PROC: 5A2204Z Restoration of Cardiac Rhythm, Single (ICD-10-PCS; 2019-08-04)
DX: A41.51 Sepsis due to Escherichia coli [E. coli] (principal); G92 Toxic encephalopathy; I48.92 Unspecified atrial flutter; E44.0 Moderate protein-calorie malnutrition; I24.9 Acute ischemic heart disease, unspecified; N30.01 Acute cystitis with hematuria; I47.1 Supraventricular tachycardia; K56.50 Intestinal adhesions [bands], unspecified as to partial versus complete obstruction; I44.30 Unspecified atrioventricular block; I16.0 Hypertensive urgency; I10 Essential (primary) hypertension; E78.5 Hyperlipidemia, unspecified; K21.9 Gastro-esophageal reflux disease without esophagitis; E83.42 Hypomagnesemia; R53.81 Other malaise; H54.61 Unqualified visual loss, right eye, normal vision left eye; G62.9 Polyneuropathy, unspecified; M06.9 Rheumatoid arthritis, unspecified; G89.29 Other chronic pain; Z60.2 Problems related to living alone; Z68.20 Body mass index [BMI] 20.0-20.9, adult; Z90.49 Acquired absence of other specified parts of digestive tract; Z85.72 Personal history of non-Hodgkin lymphomas; Z88.1 Allergy status to other antibiotic agents; Z91.81 History of falling; Z82.49 Family history of ischemic heart disease and other diseases of the circulatory system; Z87.891 Personal history of nicotine dependence; Z86.73 Personal history of transient ischemic attack (TIA), and cerebral infarction without residual deficits; M81.0 Age-related osteoporosis without current pathological fracture; Z90.710 Acquired absence of both cervix and uterus

== ENCOUNTER 2019-08-15 03:51 | Inpatient (IN) | payer OTHER ==
[~2019-08-15] VITALS: Ht 157.5 cm; Wt 41.7 kg
[2019-08-15] VITALS (11 sets, daily range): BP systolic 90–202; BP diastolic 40–66
[~2019-08-15 03:51] MED LIST changes: +ACETAMINOPHEN325 M1 PO; +COLACE 100 MG100 MG PO; +COSOPT OCUMETER10 M1 OPHTHALMIC; +COZAAR 50 MG TA50 M1 PO; +LATANOPROST 0.2.5 ML OPHTHALMIC; +MELOXICAM7.5 MG PO; +PEPCID20 MG PO; +PLAQUENIL200 MG PO; +PROPAFENONE 15150 MG PO; +THERA TEARS15 ML OPHTHALMIC; +TOPROL XL25 MG PO; +XARELTO20 MG PO
[2019-08-15 05:27] LABS: HEMATOCRIT 23.6 % (37.0-47.0); HEMOGLOBIN 7.9 gm/dL (12.0-15.0); MCHC 33.3 g/dL (28.0-37.0); MCV 92.9 fL (80.0-100.0); MPV 7.3 fl. (7.2-11.1); NUCLEATED RBCS 0 /100WBC; PLATELET COUNT* 281 thou/uL (150-400); RBC 2.54 mil/uL (4.20-5.00); RDW-CV 15.1 % (10.5-14.5); WBC 8.3 thou/uL (4.0-11.0)
[2019-08-15 05:47] LABS: CALCIUM 8.5 mg/dL (8.5-10.1); CREATININE 0.9 mg/dL (0.6-1.3); POTASSIUM 3.9 mmol/L (3.5-5.1)
[2019-08-15 05:52] LABS: ALBUMIN 2.4 g/dL (3.4-5.0); TOTAL BILIRUBIN 0.4 mg/dL (<0.1-1.0); TOTAL PROTEIN 6.4 g/dL (6.4-8.2)
[2019-08-15 07:12] LABS: ABSOLUTE EOSINOPHILS 0.2 thou/uL (0.0-0.7); ABSOLUTE LYMPHOCYTES 0.7 thou/uL (0.8-5.3); ABSOLUTE NEUTROPHILS 7.5 thou/uL (1.6-8.1); PLATELET ESTIMATE ADEQUATE
[2019-08-15 08:11] LABS: URINE BILIRUBIN NEGATIVE (Negative); URINE BLOOD TRACE (Negative); URINE CLARITY CLEAR; URINE COLOR YELLOW; URINE GLUCOSE-RANDOM NEGATIVE (Negative); URINE KETONES NEGATIVE (Negative); URINE LEUKOCYTES-REFLEX TRACE (Negative); URINE NITRITE-REFLEX NEGATIVE (Negative); URINE PROTEIN NEGATIVE (Negative); URINE UROBILINOGEN 0.2 E.U./dl (0.2-1.0)
[2019-08-15 08:23] LABS: SQUAMOUS 4-10 Moderate /LPF (0-3); URINE RBC 0-2 Rare /HPF (0-2); URINE WBC-REFLEX 0-5 Rare /HPF (0-5)
[2019-08-15 08:24] LABS: BACTERIA-REFLEX 1-9 Few /HPF (None Seen); CASTS None Seen /LPF (None Seen); CRYSTALS None Seen /LPF (None Seen); MUCUS None Seen strn/LPF (None Seen)
--- NOTE | 2019-08-15 09:37 | NUR ---
DOE NOTIFIED UPON PT RETURN FROM CT. PT CONNECTED TO MONITOR
--- NOTE | 2019-08-15 10:15 | NUR ---
ASSUMED PT CARE
--- NOTE | 2019-08-15 11:46 | EKG ---
[place] [address] ELECTROCARDIOGRAM REPORT Name: KALEY TAPIA Room: [place] [address] ADM IN ..#: [id number] Admission: 08/15/19 Attend Phys: Scar Urbano, Discharge: Date of : 30 Date of Service: 08/15/19 0458 Report #: [id number] THIS REPORT FOR: //name// [facility] ED Test Date: 2019-08-15 Test Time: 04:58:11 Pat Name: KALEY TAPIA Department: Room: [facility] Gender: F Certified Midwife: NERY : 1930 Requested By: Joanne Sparks Order Number: [id number] MD: Eddie Ghosh Measurements Intervals [place] Rate: 64 P: 88 KS: 440 QRS: -41 QRSD: 99 T: -3 QT: 442 QTc: 456 Interpretive Statements Sinus rhythm Prolonged [place] interval Left axis deviation Consider anterior infarct Compared to ECG 08/07/2019 09:59:46 First degree AV block now present Myocardial infarct finding now present Atrial fibrillation no longer present T-wave abnormality no longer present Electronically Signed On 08-15-2019 11:45:38 CORPORATE LAW SPECIALIST by Eddie Ghosh [email or web address] <ELECTRONICALLY SIGNED> By: Eddie Ghosh MD, [facility] 08/15/19 1145 0458 0458 Eddie Ghosh MD, [facility] /EPI
--- NOTE | 2019-08-15 12:52 | NUR ---
RECEIEVED REPORT FROM LUIS RN IN ER OF EXPECTED ADMISSION AT 1140- DX: MINOR HEAD INJURY, ANEMIA, NEWN PLEURAL EFF- PT ARRIVED TO ROOM 224 VIA BED AT 1200- SHOULDER PAD MOLDER PLACED ORDERED, TRACING SB WITH 1ST DEGREE- PT A&O X3, WITHDRAWN- CONT OF B/B- ASSIST X1 WITH TRANSFERS- LCTA, DIMINISHED IN BASES- VS- 97.5 16 197/59 61 95% ON RA- NOTIFIED OF ELEVATED BP- ABD SOFT/FLAT/NON-TENDER, BS X4 QUADS-PT REPORTS TO HAVE HAD BM THIS AM- 7 MARIBELL NOTED WITH WELL APPROXIMATED INCISSION; HEALING WELL R/T RECENT SURGERY- 1-2+ PITTING EDEMA NOTED TO BLE- LACERATION WITH BRUSING NOTED ABOVE RIGHT EYE WITH SLIGHT SWELLING- PT NOTED TO HAVE FULL DENTURES IN PLACE- REPORTS TO HAVE GLASSES NOT WITH PT AT TIME OF ADMISSION; SON STATES HE WILL BRING UP LATER- PT DENIES ANY C/O PAIN/DISCOMFORT AT THIS TIME- CALL LIGHT AND PERSONAL BELONGINGS WITH IN REACH- HOURLY ROUNDS IN PLACE R/T SAFETY/NEEDS- ALL NEEDS MET AT THIS TIME-TM
[2019-08-15 17:30] LABS: POTASSIUM ND mmol/L (3.5-5.1); SODIUM ND mmol/L (136-145)
[2019-08-15 17:31] LABS: CHLORIDE ND mmol/L (98-107); CO2 ND mmol/L (21-32)
[2019-08-15 17:32] LABS: ANION GAP ND mmol/L (7-16); BUN ND mg/dL (7-18); CREATININE ND mg/dL (0.6-1.3)
[2019-08-15 17:33] LABS: CALCIUM ND mg/dL (8.5-10.1); GLUCOSE ND mg/dL (70-99)
[2019-08-15 17:54] LABS: CALCIUM 8.5 mg/dL (8.5-10.1); CREATININE 0.9 mg/dL (0.6-1.3); POTASSIUM 3.4 mmol/L (3.5-5.1)
--- NOTE | 2019-08-15 20:13 | EKG ---
[place] [address] ELECTROCARDIOGRAM REPORT Name: KALEY TAPIA Room: [address] IN .R.#: [id number] Admission: 08/15/19 Attend Phys: Scar Urbano, Discharge: Date of : 30 Date of Service: 08/15/19 1630 Report #: [id number] THIS REPORT FOR: //name// [facility] Test Date: 2019-08-15 Test Time: 16:30:04 Pat Name: KALEY TAPIA Department: Room: [facility] Gender: F Herbicide Sprayer: : 1930 Requested By: Mahamed Sanford Order Number: [id number] Yeni MD: Mahamed Sanford Measurements Intervals [place] Rate: 49 P: 212 [place]: 289 QRS: -56 QRSD: 105 T: -51 QT: 583 QTc: 527 Interpretive Statements Sinus or ectopic atrial bradycardia Prolonged [place] interval Left anterior fascicular block Abnormal T, consider ischemia, anterior leads Prolonged QT interval Compared to ECG 08/15/2019 04:58:11 Bradycardia, nonsinus now present Left anterior fascicular block now present T-wave abnormality now present Possible ischemia now present Prolonged QT interval now present Sinus rhythm no longer present Myocardial infarct finding no longer present Electronically Signed On 08-15-2019 20:12:02 STRATEGIC SOURCING MANAGER by Mahamed Sanford [email or web address] <ELECTRONICALLY SIGNED> By: Mahamed Sanford MD, [facility] 08/15/192011 1630 163 Mahamed Sanford MD, [facility] /EPI
--- NOTE | 2019-08-15 20:21 | NUR ---
RECEIVED REPORT FROM JODI RONDON & ASSUMED CARE OF PATIENT AT 0700. PT WAS SLEEPING AND DIDN'T WANT TO BE WOKEN; DROWSY AND ONLY GRUNTING IN RESPONSE TO SOME QUESTIONS. FULL ASSESSMENT COMPLETED CHARTED. SCDs APPLIED, ROOM SETUP COMPLETED, CALL LIGHT IN REACH, BED LOCKED AND IN LOW POSITION, BED ALARM ON. PTs SON LEIF IN THE ROOM WITH HER. PT IS CONSISTENTLY PURA AT 45-55, DR CONTACTED, NO NEW ORDERS RECEIVED. WCTM.
[2019-08-16] VITALS (25 sets, daily range): BP systolic 136–199; BP diastolic 39–60
--- NOTE | 2019-08-16 08:23 | NUR ---
CHARTING BY DENVER RONDON REVIEWED BY ME AND AGREED UPON
--- NOTE | 2019-08-16 09:13 | CON ---
[address] [address] CONSULTATION Name: KALEY TAPIA Room: [address] ADM IN M.R.#: [id number] Admission: 08/15/19 Attend Phys: Scar Urbano MD Discharge: Date of : 30 Report #: [id number] THIS REPORT FOR: //name// cc: Omi Tinoco MD, Dean L. MD ~ THIS REPORT FOR: //name// CC: Scar Tinoco MD DATE OF SERVICE: 08/15/2019 CARDIOLOGY CONSULTATION INDICATION: Hypertension and arrhythmias. HISTORY OF PRESENT ILLNESS: The patient is an 88-year-old white female who was admitted to the hospital through the Emergency Room with complaints of cough, shortness of breath. She was found to have significant hypertensive urgency and pleural effusions in the Emergency Room and admitted. While on telemetry, we have noted sinus bradycardia with intermittent episodes of PVCs and nonsustained monomorphic ventricular tachycardia. She does have a history of recent atrial flutter. She was initially placed on sotalol, which was discontinued due to QT prolongation and started on propafenone. EKG presently shows a sinus bradycardia with slightly prolonged QT interval. There are no acute ST or T-wave abnormalities noted. The patient denies chest pain. She does have shortness of breath, but no orthopnea. She is without other cardiac complaint other than dizziness. She has not had pat syncope. PAST MEDICAL HISTORY: 1. Hypertension. 2. Paroxysmal atrial flutter. 3. Rheumatoid arthritis. 4. Partial colon resection. 5. Recent small-bowel obstruction. 6. History of colon cancer, status post resection. 7. Gastroesophageal reflux disease. 8. Hyperlipidemia. 9. Osteoporosis. ALLERGIES: NEOMYCIN, BACITRACIN, POLYMYXIN B. HOME MEDICATIONS: Tylenol 650 mg q.4 hours p.r.n., atorvastatin 40 mg daily, Colace 100 mg b.i.d., Cosopt eyedrops 1 drop daily, Pepcid 20 mg b.i.d., Plaquenil 200 mg daily, latanoprost eyedrops daily, Cozaar 50 mg b.i.d., [place] [address] CONSULTATION Name: WILLIEKALEY Madelin Room: [address]#: [id number] Admission: 08/15/19 Attend Phys: Scar Urbano MD Discharge: Date of : 30 Report #: [id number] 17 grams daily, propafenone 150 mg t.i.d., Xarelto 20 mg at dinner. FAMILY HISTORY: Positive for heart disease and hypertension. SOCIAL HISTORY: The patient lives with family. She does not smoke. She does not drink alcohol. PHYSICAL EXAMINATION: VITAL SIGNS: Blood pressure had been running high at 197/59. Presently 130/50. Pulse rate presently 48 and regular with intermittent episodes of nonsustained ventricular tachycardia. GENERAL: This is a cachectic-appearing elderly female who has a flat affect and is in no distress. HEENT: Head is normocephalic, atraumatic. Extraocular muscles intact. NECK: Shows no jugular venous distention. CHEST: Reveals diminished breath sounds at bases. I do not appreciate wheezes or rales. CARDIOVASCULAR: Reveals a regular rhythm without gallop or murmur. ABDOMEN: Reveals normal bowel sounds. The abdomen is soft, nontender. EXTREMITIES: Shows trace pitting edema of the ankles bilaterally. SKIN: Dry. LABORATORY DATA: Reviewed. White blood cell count 8.3, hemoglobin 7.9, platelet count 281,000. Sodium 137, potassium 3.9, chloride 103, bicarbonate 25, BUN 12, creatinine 0.9, serum glucose is 113. LFTs within normal limits. Albumin 2.4. Troponin less than 0.[address] of the chest shows bilateral pleural effusions. EKG as outlined above shows sinus bradycardia without acute ST-segment abnormality. IMPRESSION AND RECOMMENDATIONS: 1. Cardiac dysrhythmias with sinus bradycardia, intermittent nonsustained ventricular tachycardia, some of which appears to possibly be torsades. I have asked for a repeat metabolic profile, calcium and magnesium. The patient is not hypoxic. At this point in time, I would discontinue propafenone as this may be a proarrhythmic effect of the medication. Holding beta jack as she is bradycardic at baseline. We will adjust antihypertensive medications as required with alternative agents. Should the patient require future antiarrhythmic agent, I would consider amiodarone. 2. Hypertension. Blood pressure is now low. She has had multiple medications throughout the afternoon including 2 doses of Lasix and some Toprol-XL. I would continue home medications with the exception of propafenone and metoprolol and adjust other medications as needed. She seems to have responded fairly well to doses of diuretics. She does have normal renal function. A diuretic may aid in controlling her blood pressure. 3. History of paroxysmal atrial flutter. She is presently in a sinus bradycardia with intermittent ventricular tachycardia. At this time, I would [address] [place] [address] CONSULTATION Name: KALEY TAPIA Room: [address] IN [facility]#: [id number] Admission: 08/15/19 Attend Phys: Scar Urbano MD Discharge: Date of : 30 Report #: [id number] withhold antiarrhythmic therapy and follow clinically. As stated, if she appears to require further treatment, would consider amiodarone. <ELECTRONICALLY SIGNED> By: Mahamed Sanford MD, FACC 08/16/19 0913 1642 0158Micameena Sanford MD, FACC /nt
--- NOTE | 2019-08-16 11:22 | NUR ---
CM ASSESSMENT: MET WITH PT IN ROOM. PT WELL KNOWN TO CM FROM PREVIOUS ADMISSION. PT HAS BEEN AT [facility] FOR SNU SINCE LAST WEEK BUT PREVIOUSLY LIVES AT HOME BY HERSELF AND HAS BEEN INDEPENDENT WITH ADLS. PT FELL AT [facility] AND HAS HAD A CARDIAC ARRHYTHMIA. PLAN TO GO BACK TO [facility] UPON DISCHARGE FOR SNU. CM WILL CONTINUE TO FOLLOW
[2019-08-16 11:51] LABS: HEMOGLOBIN 8.6 gm/dL (12.0-15.0); MCH 31.3 pg (26.0-34.0); MCHC 34.3 g/dL (28.0-37.0); MCV 91.3 fL (80.0-100.0); MPV 7.2 fl. (7.2-11.1); RBC 2.73 mil/uL (4.20-5.00); RDW-CV 15.4 % (10.5-14.5); WBC 7.4 thou/uL (4.0-11.0)
[2019-08-16 13:05] LABS: ALBUMIN 2.3 g/dL (3.4-5.0); CALCIUM 7.8 mg/dL (8.5-10.1); CREATININE 0.9 mg/dL (0.6-1.3); MAGNESIUM 1.5 mg/dL (1.8-2.4); TOTAL BILIRUBIN 0.5 mg/dL (<0.1-1.0); TOTAL PROTEIN 6.3 g/dL (6.4-8.2)
[2019-08-16 13:07] LABS: POTASSIUM 2.7 mmol/L (3.5-5.1)
[2019-08-17] VITALS (15 sets, daily range): BP systolic 140–181; BP diastolic 38–97
[2019-08-17 05:10] LABS: HEMATOCRIT 23.3 % (37.0-47.0); HEMOGLOBIN 7.7 gm/dL (12.0-15.0); MCH 30.4 pg (26.0-34.0); MCHC 33.1 g/dL (28.0-37.0); MCV 91.9 fL (80.0-100.0); MPV 7.5 fl. (7.2-11.1); RBC 2.53 mil/uL (4.20-5.00); RDW-CV 15.9 % (10.5-14.5); WBC 5.6 thou/uL (4.0-11.0)
[2019-08-17 05:13] LABS: CALCIUM 7.3 mg/dL (8.5-10.1); CREATININE 0.8 mg/dL (0.6-1.3); MAGNESIUM 1.8 mg/dL (1.8-2.4)
[2019-08-17 05:14] LABS: POTASSIUM 3.9 mmol/L (3.5-5.1)
--- NOTE | 2019-08-17 05:19 | NUR ---
PT. ORIENTED TO PERSON AND PLACE, UNABLE TO USE CALL LIGHT BUT CALLS OUT WHEN NEEDING ASSISTANCE. TURNED Q2H TO MAINTAIN SKIN INTEGRITY. SINUS PURA. WILL CONTINUE TO MONITOR
--- NOTE | 2019-08-17 10:30 | NUR ---
INT ROUNDS: PT IS TELE STATUS. MET WITH PT AND SON/JUAN. PT MORE AWAKE AND TALKING TODAY. HEART RHYTHM STABLE PER NRSG. ANTICIPATE RETURN TO [facility] WHEN READY FOR DC. CALL TO [facility] VMAIL AND FAXED UPDATED CLINICAL. WILL FOLLOW
--- NOTE | 2019-08-17 11:06 | EKG ---
[place] [address] ELECTROCARDIOGRAM REPORT Name: KALEY TAPIA Room: [address] IN .R.#: [id number] Admission: 08/15/19 Attend Phys: Scar Urbano, Discharge: Date of : 30 Date of Service: 08/15/19 1757 Report #: [id number] THIS REPORT FOR: //name// [facility] Test Date: 2019-08-15 Test Time: 17:57:23 Pat Name: KALEY TAPIA Department: Room: [facility] Gender: F Pediatric Registered Nurse: MARIJA : 1930 Requested By: Bernie Lane Order Number: [id number] Reading MD: Mahamed Sanford Measurements Intervals [place] Rate: 50 P: 263 [place]: 206 QRS: -48 QRSD: 106 T: -47 QT: 601 QTc: 549 Interpretive Statements Sinus or ectopic atrial rhythm LAD, consider left anterior fascicular block Abnormal T, consider ischemia, diffuse leads Prolonged QT interval Compared to ECG 08/15/2019 16:30:04 Ectopic atrial rhythm now present Bradycardia, nonsinus no longer present First degree AV block no longer present T-wave abnormality still present Possible ischemia still present Electronically Signed On 08-17-2019 11:05:37 BACON SKINNER by Mahamed Sanford [email or web address] <ELECTRONICALLY SIGNED> By: Mahamed Sanford MD, FAC 08/17/19 1105 56 175 Mahamed Sanford MD, [facility] /EPI
--- NOTE | 2019-08-17 18:09 | NUR ---
PATIENT PROGRESSING WELL TOWARDS GOALS THIS SHIFT. TELE STATUS, WALKED WITH PT TODAY AND GOT UP TO RECLINER FOR DINNER THIS EVENING, TOLERATED WELL. NO SHORTNESS OF AIR, PAIN OR NAUSEA. INCISION LOOKS CLEAN DRY AND INTACT, MARIBELL REMAIN IN PLACE. APPETITE INCREASING THROUGHOUT SHIFT. BED IN LOWEST POSITION, CALL LIGHT IN REACH, FALL PRECAUTIONS IN PLACE. WILL CONTINUE TO MONITOR.
[2019-08-18 03:56] VITALS: BP 186/62
[2019-08-18 04:25] LABS: CALCIUM 7.7 mg/dL (8.5-10.1); CREATININE 0.8 mg/dL (0.6-1.3); MAGNESIUM 1.8 mg/dL (1.8-2.4); POTASSIUM 3.8 mmol/L (3.5-5.1)
--- NOTE | 2019-08-18 05:03 | NUR ---
PT. SLOWLY PROGRESSING TOWARDS GOALS. ORIENTED TO PERSON AND PLACE THIS SHIFT. HTN. PT. IS ABLE TO ASSIST IN SHIFTING HER OWN WEIGHT. CONTINENT, BEDPAN USED THROUGHOUT SHIFT. ROOM AIR. SINUS RHYTHM W/ PACS. TELEMETRY STATUS. WILL CONTINUE TO MONITOR.
[2019-08-18 08:00] VITALS: BP 199/69
--- NOTE | 2019-08-18 08:23 | NUR ---
ORDERS NOTED FOR DC TO SNF, CALL PLACED TO JOSE MIGUEL. WILL F/U WITH HER AFTER ROUNDS THIS AM TO ARRANGE DC. DC ORDERS FAXED TO [facility]
[2019-08-18 09:00] VITALS: BP 188/60
--- NOTE | 2019-08-18 09:17 | NUR ---
9912 assumed care of patient. please see documented assessment. DR SHAH TO SEE PATIENT. PLAN IS TO DISCHARGE PATIENT TO [facility] TODAY
--- NOTE | 2019-08-18 09:33 | NUR ---
PICC REMOVED PER ORDER. PT IS MED SURG STATUS. FAMILY IS AT BEDSIDE
[2019-08-18 10:00] VITALS: BP 155/46
--- NOTE | 2019-08-18 10:40 | NUR ---
INT ROUNDS: PT HAS DC ORDER TO RETURN TO SNF TODAY, TO GO BACK TO [facility]. MET WITH PT, SON/JUAN AND FAMILY. IN AGREEMENT WITH PLAN. CALL TO [facility], THEY WILL ACCEPT BACK TODAY AND SHE SET UP W/C VAN FOR 12PM. NURSE HAS NUMBER TO CALL REPORT. CHART COPIED AND ORDERS FAXED
[2019-08-18] MEDS ORDERED: NORVASC5 MG PO (10:51)
[2019-08-18 10:53] VITALS: BP 155/46
--- NOTE | 2019-08-18 10:57 | NUR ---
PATIENT TO GO TO [facility]. ATTEMPTING TO CALL REPORT
--- NOTE | 2019-08-18 12:22 | NUR ---
1215 REPORT TO CHRISTOPHER RONDON. PATIENT DISCHARGED PER WHEELCHAIR VAN
--- NOTE | 2019-08-18 12:33 | NUR ---
I have reviewed the documentation by ELIZABETH AGUIAR from 08/17/19 to 08/17/19 and I concur with it. DG JEAN
== END 2019-08-18 12:15 | DRG 308 ==
LOC: M.ERS 03:51 → M.TBA-ER 07:33 → M.ICU 07:33 → M.2W 12:00 → M.ICU 18:53
PROVIDERS: Emergency Medicine; Internal Medicine; Internal Medicine Cardiovascular Disease; ADMIT Internal Medicine
PROC: 02HV33Z Insertion of Infusion Device into Superior Vena Cava, Percutaneous Approach (ICD-10-PCS; principal; 2019-08-16)
DX: I47.2 Ventricular tachycardia (principal); J96.01 Acute respiratory failure with hypoxia; E43 Unspecified severe protein-calorie malnutrition; J90 Pleural effusion, not elsewhere classified; I24.9 Acute ischemic heart disease, unspecified; K92.1 Melena; Z68.1 Body mass index [BMI] 19.9 or less, adult; I48.92 Unspecified atrial flutter; I16.0 Hypertensive urgency; K21.9 Gastro-esophageal reflux disease without esophagitis; S00.83XA Contusion of other part of head, initial encounter; E78.5 Hyperlipidemia, unspecified; M06.9 Rheumatoid arthritis, unspecified; G62.9 Polyneuropathy, unspecified; I49.9 Cardiac arrhythmia, unspecified; D64.9 Anemia, unspecified; I48.0 Paroxysmal atrial fibrillation; M81.0 Age-related osteoporosis without current pathological fracture; W06.XXXA Fall from bed, initial encounter; R55 Syncope and collapse; I10 Essential (primary) hypertension; Z85.038 Personal history of other malignant neoplasm of large intestine; Z79.01 Long term (current) use of anticoagulants; Z79.899 Other long term (current) drug therapy; Z88.1 Allergy status to other antibiotic agents; Z82.49 Family history of ischemic heart disease and other diseases of the circulatory system; Z90.49 Acquired absence of other specified parts of digestive tract; Y93.89 Activity, other specified; Y92.89 Other specified places as the place of occurrence of the external cause; Y99.8 Other external cause status; Z82.3 Family history of stroke; Z85.71 Personal history of Hodgkin lymphoma

== ENCOUNTER 2019-11-07 12:48 | Inpatient (IN) | payer OTHER ==
[~2019-11-07] VITALS: Ht 154.9 cm; Wt 48.5 kg
[2019-11-07 12:49] VITALS: BP 147/63
[2019-11-07 13:34] LABS: HEMATOCRIT 37.1 % (37.0-47.0); HEMOGLOBIN 12.5 gm/dL (12.0-15.0); MCH 29.4 pg (26.0-34.0); MCHC 33.6 g/dL (28.0-37.0); MCV 87.4 fL (80.0-100.0); MPV 7.9 fl. (7.2-11.1); NUCLEATED RBCS 0 /100WBC; PLATELET COUNT* 211 thou/uL (150-400); RBC 4.24 mil/uL (4.20-5.00); RDW-CV 14.1 % (10.5-14.5); WBC 9.5 thou/uL (4.0-11.0)
[2019-11-07 13:44] LABS: CALCIUM 9.4 mg/dL (8.5-10.1); POTASSIUM 3.9 mmol/L (3.5-5.1)
[2019-11-07 13:45] LABS: APTT 43.6 Seconds (25.0-31.3); INR 1.7; PROTIME 16.7 Seconds (9.20-11.50)
[2019-11-07 13:48] LABS: ALBUMIN 4.1 g/dL (3.4-5.0); TOTAL BILIRUBIN 0.4 mg/dL (<0.1-1.0); TOTAL PROTEIN 8.4 g/dL (6.4-8.2)
[2019-11-07 13:59] LABS: ABSOLUTE LYMPHOCYTES 0.2 thou/uL (0.8-5.3); ABSOLUTE NEUTROPHILS 9.3 thou/uL (1.6-8.1); PLATELET ESTIMATE ADEQUATE
[2019-11-07 14:17] LABS: URINE BILIRUBIN NEGATIVE (Negative); URINE BLOOD TRACE (Negative); URINE CLARITY CLEAR; URINE COLOR YELLOW; URINE GLUCOSE-RANDOM NEGATIVE (Negative); URINE KETONES NEGATIVE (Negative); URINE LEUKOCYTES-REFLEX NEGATIVE (Negative); URINE NITRITE-REFLEX NEGATIVE (Negative); URINE PROTEIN TRACE (Negative); URINE UROBILINOGEN 0.2 E.U./dl (0.2-1.0)
--- NOTE | 2019-11-07 15:34 | EKG ---
[place] [address] ELECTROCARDIOGRAM REPORT Name: WILLIEKALEY Room: [place] [address] [facility].#: [id number] Admission: 11/07/19 Attend Phys: Bernie Lane, Discharge: Date of : 30 Date of Service: 11/07/19 1302 Report #: [id number] THIS REPORT FOR: //name// [facility] ED Test Date: 2019-11-07 Test Time: 13:02:32 Pat Name: KALEY TAPIA Department: Room: [facility] Gender: F Resistor Tester: CCD : 1930 Requested By: Francisco Madsen Order Number: [id number] MD: Eddie Ghosh Measurements Intervals [place] Rate: 99 P: [place]: QRS: -41 QRSD: 92 T: 71 QT: 384 QTc: 493 Interpretive Statements Atrial fibrillation Left axis deviation Anteroseptal infarct, old possible Borderline ST depression, diffuse leads Baseline wander in lead(s) V4,V6 Compared to ECG 08/15/2019 17:57:23 Myocardial infarct finding now present ST (T wave) deviation now present Ectopic atrial rhythm no longer present Possible ischemia persists Prolonged QT interval no longer present Electronically Signed On 11-07-2019 15:33:11 CDT by Eddie Ghosh [email or web address] <ELECTRONICALLY SIGNED> By: Eddie Ghosh MD, [facility] 11/07/19 1533 1302 1302 Eddie Ghosh MD, [facility] /EPI
[2019-11-07 16:14] VITALS: BP 175/62
[2019-11-07 16:40] VITALS: BP 182/62
--- NOTE | 2019-11-07 16:55 | 2DMMODE ---
[place] [address] 2 D/M-MODE ECHOCARDIOGRAM Name: KALEY TAPIA Madelin Room: [address] IN [facility]#: [id number] Admission: 11/07/19 Attend Phys: Bernie Lane, Discharge: Date of : 30 Date of Service: 11/07/19 1653 Report #: [id number] THIS REPORT FOR: cc: Omi Tinoco MD, Dean L. MD Liston, Michael J. MD [facility] ~ APPROVED REPORT Study performed: 11/07/2019 15:55:27 EXAM: Comprehensive 2D, Doppler, and color-flow Echocardiogram Patient Location: In-Patient Room #: [facility] Status: routine BSA: 1.38 HR: 78 bpm BP: 147/63 mmHg Rhythm: NSR Other Information Study Quality: Good Indications Pre-Op 2D Dimensions IVSd: 8.59 (7-11mm) LVOT Diam: 19.71 (18-24mm) LVDd: 36.27 mm PWd: 8.76 (7-11mm) Ascending Ao: 27.06 (22-36mm) LVDs: 21.05 (25-40mm) Aortic Root: 28.29 mm Volumes Left Atrial Volume (Systole) LA ESV Index: 36.80 mL/m2 Aortic Valve AoV Peak Jaya.: 1.31 m/s AO Peak Gr.: 6.84 mmHg LVOT Max P.36 mmHg AO Mean Gr.: 4.30 mmHg LVOT Mean P.75 mmHg LVOT Max V: 0.92 m/s AO V2 VTI: 29.02 cm LVOT Mean V: 0.62 m/s ANGELINA (VTI): 2.23 cm2 LVOT V1 VTI: 21.21 [place] [address] 2 D/M-MODE ECHOCARDIOGRAM Name: KALEY TAPIA Room: [address] IN .R.#: [id number] Admission: 11/07/19 Attend Phys: Bernie Lane, Discharge: Date of : 30 Date of Service: 11/07/19 1653 Report #: [id number] Mitral Valve E/A Ratio: 2.53 MV Decel. Time: 158.18 ms MV E Max Jaya.: 1.47 m/s MV PHT: 45.87 ms MVA (PHT): 4.80 cm2 TDI E/Lateral E': 16.33 E/Medial E': 18.38 Medial E' Jaya.: 0.08 m/s Lateral E' Jaya.: 0.09 m/s Pulmonary Valve PV Peak Jaya.: 0.95 m/s PV Peak Gr.: 3.64 mmHg Tricuspid Valve RAP Estimate: 5.00 mmHg TR Peak Gr.: 43.13 mmHg RVSP: 48.00 mmHg PA Pressure: 48.00 mmHg Left Ventricle The left ventricle is normal size. There is normal LV segmental wall motion. There is normal left ventricular wall thickness. Left ventricular systolic function is normal. LVEF is 60-65%. Transmitral Doppler flow pattern suggests restrictive physiology. Right Ventricle The right ventricle is normal size. The right ventricular systolic function is normal. Atria Left atrium is mildly dilated. Right atrium is mildly dilated. Aortic Valve Mild aortic valve sclerosis. No aortic regurgitation is present. There is no aortic valvular stenosis. Mitral Valve There is mitral annular calcification. Mild mitral regurgitation. No evidence of mitral valve stenosis. Tricuspid Valve The tricuspid valve is normal in structure. Mild tricuspid regurgitation. Moderate pulmonary hypertension. The RVSP is 45-50 [place] [address] 2 D/M-MODE ECHOCARDIOGRAM Name: KALEY TAPIA Room: [address] IN [facility]#: [id number] Admission: 11/07/19 Attend Phys: Bernie Lane, Discharge: Date of : 30 Date of Service: 11/07/19 1653 Report #: [id number] Pulmonic Valve The pulmonary valve is normal in structure. There is no pulmonic valvular regurgitation. Great Vessels The aortic root is normal in size. IVC is normal in size and collapses >50% with inspiration. Pericardium There is no pericardial effusion. <Conclusion> The left ventricle is normal size. There is normal left ventricular wall thickness. Left ventricular systolic function is normal. LVEF is 60-65%. Transmitral Doppler flow pattern suggests restrictive physiology. Left atrium is mildly dilated. Right atrium is mildly dilated. Mild aortic valve sclerosis. Mild mitral regurgitation. Mild tricuspid regurgitation. Moderate pulmonary hypertension. The RVSP is 45-50 mmHg. IVC is normal in size and collapses >50% with inspiration. <ELECTRONICALLY SIGNED> By: Mahamed Sanford MD, FACC 11/07/19 1653 165 165 Mahamed Sanford MD, FACC /INF
[2019-11-07 20:00] VITALS: BP 190/60
[2019-11-08] VITALS: BP 151/58
[2019-11-08 03:50] LABS: HEMATOCRIT 28.7 % (37.0-47.0); MCH 29.2 pg (26.0-34.0); MCHC 33.4 g/dL (28.0-37.0); MCV 87.4 fL (80.0-100.0); MPV 7.5 fl. (7.2-11.1); RBC 3.28 mil/uL (4.20-5.00); RDW-CV 14.1 % (10.5-14.5); WBC 6.5 thou/uL (4.0-11.0)
[2019-11-08 03:54] VITALS: BP 150/52
[2019-11-08 03:59] LABS: APTT 32.9 Seconds (25.0-31.3); INR 1.3; PROTIME 13.5 Seconds (9.20-11.50)
[2019-11-08 04:01] LABS: ALBUMIN 3.1 g/dL (3.4-5.0); CALCIUM 8.7 mg/dL (8.5-10.1); CREATININE 0.9 mg/dL (0.6-1.3); MAGNESIUM 1.8 mg/dL (1.8-2.4); TOTAL BILIRUBIN 0.3 mg/dL (<0.1-1.0); TOTAL PROTEIN 6.5 g/dL (6.4-8.2)
[2019-11-08 04:04] LABS: HEMOGLOBIN 9.6 gm/dL (12.0-15.0)
[2019-11-08 07:30] VITALS: BP 170/54
[2019-11-08 12:49] VITALS: BP 150/54
[2019-11-08 12:58] VITALS: BP 150/54
[2019-11-08 20:20] VITALS: BP 108/40
--- NOTE | 2019-11-08 21:29 | OP ---
[address] [address] OPERATIVE REPORT Name: KALEY TAPIA Room: [address] IN .R.#: [id number] Admission: 11/07/19 Attend Phys: Bernie Lane MD Discharge: Date of : 30 Report #: [id number] THIS REPORT FOR: //name// cc: Omi Tinoco MD, Dean L. MD ~ THIS REPORT FOR: //name// CC: mOi Lane DATE OF SERVICE: 11/08/2019 PREOPERATIVE DIAGNOSIS: Left displaced femoral neck fracture. POSTOPERATIVE DIAGNOSIS: Left displaced femoral neck fracture. PROCEDURE: Left jasmeet-hip arthroplasty. SURGEON: Alex Cisneros DO HALL SUPERVISOR: 1. Andreas Kaminski DO 2. Darron Dumont DO ANESTHESIA: General. ANTIBIOTICS: Ancef IV. FLUIDS: 1000 mL lactated Ringer's. ESTIMATED BLOOD LOSS: 200 mL. URINE OUTPUT: 300 mL. COMPLICATIONS: None. SPECIMENS: None. DRAINS: None. CONDITION OF PATIENT: Stable to PACU. IMPLANTS: Yvrose Echo fracture stem press-fit size 14 standard offset, standard neck adaptor with 45 mm bipolar head. INDICATIONS FOR PROCEDURE: The patient is an ambulatory 89-year-old patient who [address] [place] [address] OPERATIVE REPORT Name: KALEY TAPIA Room: [address]#: [id number] Admission: 11/07/19 Attend Phys: Bernie Lane MD Discharge: Date of : 30 Report #: [id number] had a displaced femoral neck fracture. I went over with her and son both the imaging, diagnosis, exam findings, plan of surgery with reasoning and risks and complications. We obtained consent. They agreed. DESCRIPTION OF PROCEDURE: I marked the left lower extremity in the presence of the operative team members. Everyone agreed this was correct. She was taken to the operative suite, general anesthetic administered, transferred over to the operating table into the right lateral decubitus position, well-padded and secured. Left lower extremity was sterilely prepped and draped in standard fashion. Timeout was performed indicating correct patient, procedure, site, antibiotics and that implants were present and sterile. All team members agreed. Marked out an incision for an anterolateral approach, scalpel through skin, full thickness flaps down to fascia and IT band incised. Charnley retractor placed. Anterolateral approach, glute medius and minimus were reflected leaving a cuff of tissue to repair to and also tendinous attachment at the tip left untouched. Capsule incised with a T capsulotomy, one fingerbreadth above the lesser of the cut was cleaned up with reciprocating saw, removed the head and neck, cleaned out the acetabulum and sized on the back table as 45. Trial a 45 and had good suction fit within the acetabulum and labrum and was appropriate. We began prepping the femur, box osteotome lateralizer, canal finder, distal reaming and broaching to a 14, which had adequate fit and fill. Bone stock appropriate for a press-fit stem within the actual calcar and femur. Final Echo press-fit size 14 standard offset thrown on to the back table, irrigated within the canal, implanted the final stem, no complication, sat at the exact same level of the trial. We trialed a standard with 45 mm head and reduced with appropriate tension. Leg lengths were appropriate and full stability throughout all planes. Dislocated the hip, removed the trial, final standard with a 45 mm bipolar head thrown on the backtable and engaged on the Blair taper, checked, no loose debris within the acetabulum and irrigated one last time. Reduced the hip with all final components placed, leg lengths were excellent and full stability throughout, full range of motion. No instability could be found. Irrigated with normal saline throughout the surgical site and began closure #1 Vicryl for capsule, #5 Ti-Cron for glute through bone suture and oversewn with #1 Vicryl, fascia and IT band closed with #1 Vicryl and oversewn with #1 Stratafix, subcutaneous closed with 2-0 Monocryl buried deep and skin with #3 Stratafix with Dermabond glue over. Debriefing performed confirming procedure, blood loss and that all counts were correct and final. All team members agreed. Sterile silver impregnated dressing was applied. She was extubated and taken to PACU in stable condition. She was transferred off the operative table to the bed in supine position and extubated and taken to PACU in stable. POSTOPERATIVE COURSE AND EVALUATION: I spoke with her son on the phone and addressed questions, he had stated satisfaction. He was thankful for my time and efforts. She was resting in PACU with stable vital signs, pain controlled. Dressing clean, dry and intact. Leg lengths equal. Neurovascularly intact, [address] [place] [address] OPERATIVE REPORT Name: KALEY TAPIA Room: [address] IN M.R.#: [id number] Admission: 11/07/19 Attend Phys: Bernie Lane MD Discharge: Date of : 30 Report #: [id number] compartments soft and compressible. Negative Homans sign. PACU films showed stable prosthesis in good position and alignment. No fracture, dislocation or obvious. Weightbear as tolerated. PT, OT anterolateral hip precautions. Case management to help with discharge planning. DVT prophylaxis will be both pharmacological. She will be resuming her normal Xarelto dose as well as mechanical. I encouraged medical nursing staff, the patient and her family to call anytime with questions or concerns. It should be noted that COVID protocol was followed during outpatient care. <ELECTRONICALLY SIGNED> By: Alex Cisneros DO 11/08/192128 39 Jorje Cisneros DO /nt
[2019-11-09] VITALS (8 sets, daily range): BP systolic 104–163; BP diastolic 32–79
[2019-11-09 00:49] LABS: MCHC 33.4 g/dL (28.0-37.0); MCV 89.7 fL (80.0-100.0); MPV 7.9 fl. (7.2-11.1); RBC 2.02 mil/uL (4.20-5.00); RDW-CV 13.7 % (10.5-14.5); WBC 10.1 thou/uL (4.0-11.0)
[2019-11-09 00:55] LABS: HEMATOCRIT 18.1 % (37.0-47.0); HEMOGLOBIN 6.1 gm/dL (12.0-15.0)
[2019-11-09 01:01] LABS: INR 1.4; PROTIME 13.9 Seconds (9.20-11.50)
[2019-11-09 01:04] LABS: ALBUMIN 2.3 g/dL (3.4-5.0); CALCIUM 7.9 mg/dL (8.5-10.1); CREATININE 1.2 mg/dL (0.6-1.3); MAGNESIUM 1.6 mg/dL (1.8-2.4); POTASSIUM 4.3 mmol/L (3.5-5.1); TOTAL BILIRUBIN 0.3 mg/dL (<0.1-1.0); TOTAL PROTEIN 5.2 g/dL (6.4-8.2)
[2019-11-09 06:05] LABS: HEMATOCRIT 27.2 % (37.0-47.0)
[2019-11-10 04:36] VITALS: BP 144/42
[2019-11-10 05:03] LABS: MCH 30.8 pg (26.0-34.0); MCHC 35.1 g/dL (28.0-37.0); MCV 87.8 fL (80.0-100.0); MPV 8.1 fl. (7.2-11.1); RBC 2.01 mil/uL (4.20-5.00); RDW-CV 13.8 % (10.5-14.5); WBC 6.6 thou/uL (4.0-11.0)
[2019-11-10 05:09] LABS: HEMATOCRIT 17.6 % (37.0-47.0); HEMOGLOBIN 6.2 gm/dL (12.0-15.0)
[2019-11-10 05:25] LABS: ALBUMIN 2.2 g/dL (3.4-5.0); CALCIUM 7.7 mg/dL (8.5-10.1); CREATININE 1.1 mg/dL (0.6-1.3); MAGNESIUM 1.8 mg/dL (1.8-2.4); POTASSIUM 4.3 mmol/L (3.5-5.1); TOTAL BILIRUBIN 0.2 mg/dL (<0.1-1.0)
[2019-11-10 07:30] VITALS: BP 153/58
[2019-11-10 08:56] VITALS: BP 109/37; BP 137/35; BP 141/44; BP 155/44
[2019-11-10 12:00] VITALS: BP 147/38
[2019-11-10 15:37] LABS: HEMATOCRIT 23.8 % (37.0-47.0); HEMOGLOBIN 8.2 gm/dL (12.0-15.0)
[2019-11-10 16:50] VITALS: BP 166/52
[2019-11-10 19:35] VITALS: BP 200/63
[2019-11-11 00:46] VITALS: BP 158/45
[2019-11-11 05:00] VITALS: BP 143/48
[2019-11-11 05:22] LABS: HEMOGLOBIN 7.7 gm/dL (12.0-15.0); MCH 30.2 pg (26.0-34.0); MCHC 34.9 g/dL (28.0-37.0); MCV 86.5 fL (80.0-100.0); MPV 8.2 fl. (7.2-11.1); RBC 2.54 mil/uL (4.20-5.00); RDW-CV 14.4 % (10.5-14.5); WBC 6.7 thou/uL (4.0-11.0)
[2019-11-11 05:47] LABS: ALBUMIN 2.1 g/dL (3.4-5.0); CALCIUM 7.9 mg/dL (8.5-10.1); CREATININE 0.8 mg/dL (0.6-1.3); POTASSIUM 4.3 mmol/L (3.5-5.1); TOTAL BILIRUBIN 0.4 mg/dL (<0.1-1.0); TOTAL PROTEIN 5.3 g/dL (6.4-8.2)
[2019-11-11 07:50] VITALS: BP 152/48
[2019-11-11 13:07] VITALS: BP 134/35
[2019-11-11 16:41] VITALS: BP 145/46
[2019-11-11 19:25] VITALS: BP 154/42
[2019-11-12] VITALS: BP 148/44
[2019-11-12 04:00] VITALS: BP 169/40
[2019-11-12 04:24] LABS: HEMATOCRIT 22.5 % (37.0-47.0); HEMOGLOBIN 7.6 gm/dL (12.0-15.0); MCH 29.9 pg (26.0-34.0); MCHC 33.9 g/dL (28.0-37.0); MPV 7.9 fl. (7.2-11.1); RBC 2.56 mil/uL (4.20-5.00); RDW-CV 14.1 % (10.5-14.5); WBC 6.3 thou/uL (4.0-11.0)
[2019-11-12 04:33] LABS: CALCIUM 8.4 mg/dL (8.5-10.1); CREATININE 0.9 mg/dL (0.6-1.3); MAGNESIUM 2.3 mg/dL (1.8-2.4); POTASSIUM 4.7 mmol/L (3.5-5.1)
[2019-11-12 08:00] VITALS: BP 152/43
[2019-11-12 11:41] VITALS: BP 140/66
[2019-11-12 16:13] VITALS: BP 147/40
[2019-11-12 20:39] VITALS: BP 154/47
[2019-11-13] VITALS: BP 153/56
[2019-11-13 03:52] VITALS: BP 142/85
[2019-11-13 07:30] VITALS: BP 144/49
[2019-11-13 09:09] LABS: ABSOLUTE EOSINOPHILS 0.2 thou/uL (0.0-0.7); ABSOLUTE LYMPHOCYTES 0.9 thou/uL (0.8-5.3); ABSOLUTE MONOCYTES 0.5 thou/uL (0.0-1.2); ABSOLUTE NEUTROPHILS 4.8 thou/uL (1.6-8.1); BASOPHILS 0.5 %; EOSINOPHILS 2.4 %; HEMATOCRIT 24.4 % (37.0-47.0); HEMOGLOBIN 8.4 gm/dL (12.0-15.0); LYMPHOCYTES 13.7 %; MCH 30.1 pg (26.0-34.0); MCHC 34.4 g/dL (28.0-37.0); MCV 87.7 fL (80.0-100.0); MONOCYTES 8.3 %; MPV 6.9 fl. (7.2-11.1); NUCLEATED RBCS 0 /100WBC; PLATELET COUNT* 235 thou/uL (150-400); POLYS 75.1 %; RBC 2.79 mil/uL (4.20-5.00); RDW-CV 14.4 % (10.5-14.5); WBC 6.4 thou/uL (4.0-11.0)
[2019-11-13 12:25] VITALS: BP 126/39
[2019-11-13] MEDS ORDERED: LIDOPATCH1 EACH TOP (13:58)
[2019-11-13] MEDS ORDERED: XARELTO10 MG PO (13:58)
[2019-11-13] MEDS ORDERED: FERREX 150 PLU1 EAC1 PO (13:58)
[2019-11-13] MEDS ORDERED: HYDROCODON-ACE1 EAC7 PO (13:58)
[2019-11-13] MEDS ORDERED: TRAMADOL 50 MG50 MG PO (13:58)
[2019-11-13 16:12] VITALS: BP 152/69
== END 2019-11-13 20:46 | DRG 470 ==
LOC: M.ERS 12:48 → M.TBA-ER 14:05 → M.2W 14:05
PROVIDERS: Family Medicine; Internal Medicine; Orthopaedic Surgery; ADMIT Internal Medicine
PROC: 0SRS0JA Replacement of Left Hip Joint, Femoral Surface with Synthetic Substitute, Uncemented, Open Approach (ICD-10-PCS; 2019-11-08)
PROC: 30233N1 Transfusion of Nonautologous Red Blood Cells into Peripheral Vein, Percutaneous Approach (ICD-10-PCS; principal; 2019-11-09)
DX: M80.052A Age-related osteoporosis with current pathological fracture, left femur, initial encounter for fracture (principal); R71.0 Precipitous drop in hematocrit; I48.0 Paroxysmal atrial fibrillation; S51.812A Laceration without foreign body of left forearm, initial encounter; K21.9 Gastro-esophageal reflux disease without esophagitis; E78.5 Hyperlipidemia, unspecified; M06.9 Rheumatoid arthritis, unspecified; I34.0 Nonrheumatic mitral (valve) insufficiency; W18.39XA Other fall on same level, initial encounter; G89.29 Other chronic pain; Y93.89 Activity, other specified; Y99.8 Other external cause status; Y92.098 Other place in other non-institutional residence as the place of occurrence of the external cause; Z79.01 Long term (current) use of anticoagulants; Z85.038 Personal history of other malignant neoplasm of large intestine; Z90.49 Acquired absence of other specified parts of digestive tract; Z79.899 Other long term (current) drug therapy; Z88.1 Allergy status to other antibiotic agents; Z88.8 Allergy status to other drugs, medicaments and biological substances; Z90.710 Acquired absence of both cervix and uterus; Z86.73 Personal history of transient ischemic attack (TIA), and cerebral infarction without residual deficits; Z85.72 Personal history of non-Hodgkin lymphomas

== ENCOUNTER 2019-11-13 17:02 | Inpatient (IN) | payer OTHER ==
[~2019-11-13] VITALS: Ht 157.5 cm; Wt 40.3 kg
[~2019-11-13 17:02] MED LIST changes: +FERREX 150 PLU1 EAC1 PO; +HYDROCODON-ACE1 EAC7 PO; +LIDOPATCH1 EACH TOP; +TRAMADOL 50 MG50 MG PO; +XARELTO10 MG PO
[2019-11-13 20:04] VITALS: BP 141/54
--- NOTE | 2019-11-13 20:30 | NUR ---
PT TO BE DISCHARGED FROM ROOM 213 AND RE-ADMITTED TO REHAB ROOM 328 WITHIN THE HOUR.
--- NOTE | 2019-11-14 04:24 | NUR ---
PT ARRIVED TO FLOOR FROM TELE AT APPROXIMATELY 2100. PT S/P LEFT HIP FRACTURE AND REPAIR OF SAME. ALERT AND ORIENTED 2 TO 3, PT SLEEPY BUT COMPUTER DATABASE COMPLETED. DRESSING TO LEFT HIP C/D/I. SKIN TEAR TO LEFT ELBOW, ZEROFORM DRESSING TO BE CHANGED WEDNESDAY. PT HAS A GLASS EYE ON RIGHT, CAN SEE WELL FROM LEFT EYE. ROMEO TO DD, DRAINING CLEAR YELLOW URINE. PERIPHERAL SL TO RIGHT FOREARM AND PERIPHERAL SL TO LEFT IJ. AFTER TRANSFERING TO REHAB BED PT C/O PAIN IN LEFT HIP OF 10+, HYDDROCODONE GIVEN WITH GOOD RESULTS. HIP ADDUCTOR PILLOW IN PLACE. PT SLEEPING, NO FURTHER S/S OF PAIN OR DISTRESS.
--- NOTE | 2019-11-14 05:26 | NUR ---
PT SLEPT WELL OVERNIGHT. NO FURTHER C/O PAIN. ROMEO TO DD DRAINING CLEAR YELLOW URINE. PT DID NOT GET OUT OF BED THIS SHIFT. REPORTED TO BE UP WITH MAX ASSIST OF TWO. BED ALARM ON FOR SAFETY. CALL LIGHT IN REACH. HOURLY ROUNDING IN PROGRESS, WILL CONTINUE TO MONITOR.
[2019-11-14 07:34] LABS: HEMATOCRIT 22.1 % (37.0-47.0); HEMOGLOBIN 7.4 gm/dL (12.0-15.0); MCH 29.7 pg (26.0-34.0); MCHC 33.6 g/dL (28.0-37.0); MCV 88.5 fL (80.0-100.0); MPV 7.5 fl. (7.2-11.1); RBC 2.5 mil/uL (4.20-5.00); RDW-CV 14.2 % (10.5-14.5); WBC 5.5 thou/uL (4.0-11.0)
[2019-11-14 07:49] LABS: CALCIUM 8.1 mg/dL (8.5-10.1); CREATININE 0.9 mg/dL (0.6-1.3); POTASSIUM 4.4 mmol/L (3.5-5.1)
[2019-11-14 08:02] VITALS: BP 170/61
--- NOTE | 2019-11-14 18:53 | NUR ---
ALERT AND ORIENTED X4 BUT SLOW WITH RESPONSES. NOT COMPLETING SENTENCES OR WRITTING NAME. WBAT TO LEFT LEG. DRESSING DRY AND INTACT OVER LEFT HIP INCISION. ROMEO CATHETER D/C AT 1845. MOM GIVEN FOR CONSTIPATION. UP WITH 2 ASSIST, GAIT BELT FOR PIVOT TRANSFER. PO PAIN MEDICATION GIVEN AND SEEMED HELPFUL. DRESSING CHANGED TO SKIN TEAR LEFT ARM. FALL PRECAUTIONS IN PLACE. BED ALARM AND CHAIR ALARM USED. CALL LIGHT WITHIN REACH.
[2019-11-14 20:58] LABS: URINE BILIRUBIN NEGATIVE (Negative); URINE BLOOD TRACE (Negative); URINE CLARITY CLEAR; URINE COLOR YELLOW; URINE GLUCOSE-RANDOM NEGATIVE (Negative); URINE KETONES NEGATIVE (Negative); URINE PROTEIN NEGATIVE (Negative); URINE UROBILINOGEN 0.2 E.U./dl (0.2-1.0)
[2019-11-14 20:59] LABS: URINE LEUKOCYTES-REFLEX 3+ (Negative); URINE NITRITE-REFLEX POSITIVE (Negative)
[2019-11-14 21:04] LABS: SQUAMOUS NONE SEEN /LPF (0-3); URINE WBC-REFLEX 6-15 Few /HPF (0-5)
[2019-11-14 21:05] LABS: CASTS None Seen /LPF (None Seen); CRYSTALS None Seen /LPF (None Seen); MUCUS None Seen strn/LPF (None Seen); URINE RBC 3-10 Few /HPF (0-2)
--- NOTE | 2019-11-14 21:35 | NUR ---
INITIALLY CONFUSED AND ANXIOUS. PATIENT HAD TRIED TO REMOVE HER FOAM HIP ABDUCTOR. IT WAS ALMOST ALL OF THE WAY OFF. INFORMED PATIENT SHE NEEDED TO KEEP IT ON TO KEEP HER HIP IN PLACE. ALERT AND ORIENTED TO NAME ONLY. AT FIRST COULDN'T REMEMBER HOW SHE ENDED UP IN THE HOSPITAL. THEN AFTER ASKING HER HOW SHE FELL SHE STARTED TO REMEMBER ABOUT HER FALL AT HOME. SHE SAID, "BUT THAT WAS A WEEK AGO." EXPLAINED TO PATIENT THAT SHE WAS ON THE REHAB UNIT TO GET THERAPY SO SHE COULD GET STRONGER. TOOK MEDICATIONS WHOLE A FEW AT A TIME WITH WATER. GAVE TYLENOL PER REQUEST FOR COMPLAINT OF LEFT HIP PAIN. LEFT HIP DRESSING DRY/INTACT. REINA WRAP AROUND LEFT ARM DRY/INTACT. REINFORCED WITH PATIENT HOW TO USE THE CALL LIGHT AND TO CALL IF HAD ANY NEEDS.
[2019-11-14 23:20] VITALS: BP 131/36
[2019-11-14 23:35] VITALS: BP 173/102
--- NOTE | 2019-11-15 06:02 | NUR ---
VOIDED 300 ML PER BEDPAN AT ABOUT 2215. ASSISTED WITH REPOSITIONING. COMPLAINT WITH LEAVING THE ABDUCTOR IN PLACE. NO FURTHER COMPLAINT OF PAIN. HOURLY ROUNDING IN PROGRESS.
[2019-11-15 08:57] VITALS: BP 155/41
[2019-11-15 12:38] LABS: HEMOGLOBIN 8.7 gm/dL (12.0-15.0); MCH 29.8 pg (26.0-34.0); MCHC 33.5 g/dL (28.0-37.0); RBC 2.92 mil/uL (4.20-5.00); RDW-CV 13.9 % (10.5-14.5); WBC 8.2 thou/uL (4.0-11.0)
[2019-11-15 12:43] LABS: CALCIUM 8.8 mg/dL (8.5-10.1); POTASSIUM 3.8 mmol/L (3.5-5.1)
--- NOTE | 2019-11-15 17:21 | NUR ---
ALERT AND ORIENTED X4 WITH PERIODS OF CONFUSION AND FORGETFULNESS. UP WITH 2 ASSIST, GAIT BELT TO DO FEW STEPS PIVOT TRANSFERS. C/O PAIN AND PAIN MEDICATION GIVEN WHICH SEEMED TO MAKE PATIENT DROWSY. DRESSING DRY AND INTACT OVER LEFT HIP AND LEFT ARM. FALL PRECAUTIONS IN PLACE. BED ALAM AND CHAIR ALARM USED.
[2019-11-15 20:13] VITALS: BP 134/41
--- NOTE | 2019-11-16 01:45 | NUR ---
ASSUMED CARE @ 1947-.AWAKE IN BED WATCHING TV W/ HOB UP.BED ALARM PUT ON @ 1947.EACH LE UP ON A PILLOW.SALINE LOCK RIGHT FOREARM W/ GOOD BLOOD RETURN @ 2199 & FLUSHED WELL.REINA BANDAGE-LEFT FOREARM.WANTS TYLENOL 2 TABS FOR SLEEP & GIVEN @ 104-.THEN WANTS ONE COOKIE & GIVEN LITA.CHIP COOKIE & ATE ALL @ 0120 W/ H20.ON HOURLY ROUNDS.BUSINESS INSIGHT AND ANALYTICS MANAGER DOING ODD HOUR ROUNDS.
--- NOTE | 2019-11-16 04:45 | NUR ---
SON -STEVIE CALLED EARLIER @ 2029 BUT UNABLE TO CONNECT TO PATIENT'S ROOM.LATER ELECTRIC METER REPAIRER APPRENTICE FOUND OUT THAT OUTSIDE CALLS DO NOT GO TO ROOM AFTER 1999.THEN,STEVIE CALLED AGAIN @ 0420-INQUIRING About RESULT OF UA SENT.INFORMED THAT MOTHER WAS STARTED ON ORAL Antibiotic @ 1100 am 11/14-wed & ORDER WAS BID.INFORMED ALSO THAT PT UNABLE TO SLEEP SO RN JUST GAVE HER TYLENOL 2 TABS & SLEPT ONLY FROM 0200 TO 409.INFORMED SON THAT NIGHT RN TO SUGGEST HERBAL SLEEPER LIKE MELAtonin instead of AMBIEN.SON WANTS RN TO TELL MOTHER THAT HE CALLED @ 0420 BUT PT WENT BACK TO SLEEP @ 0430.WILL TELL PT LATER ABOUT SON'S CALL @ 0420- WHENEVER PT WAKES UP.
--- NOTE | 2019-11-16 05:33 | NUR ---
SLEPT LATE FROM 0200 TO 0410-11/15-.USED BEDPAN X2.STEVENSON CARE X2.MOISTURE BARRIER CREAM APPIED X1.REFUSED HS SNACK.
[2019-11-16 08:00] VITALS: BP 125/35
--- NOTE | 2019-11-16 13:42 | NUR ---
SW called pt bayron Babcock to review team conference summary and plan to reteam during team conference next Wednesday to reassess pt length of stay. Pt did not answer so SW left detailed message requesting call back with any dc plans or questions. SW to continue to follow to assist with safe dc planning.
--- NOTE | 2019-11-16 16:38 | NUR ---
PATIENT UP TO CHAIR THIS AM WITH MAX ASSISTANCE OF 2, WALKER AND GAIT BELT UTILIZED. PATIENT UP TO BSC TO VOID, VOIDING LARGE AMOUNTS. PATIENT REFUSED SUPP OR MOM TODAY, TOOK HER SCHED COLACE AND MIRLAX ORDERED. NO BM NOTED BUT PATIENT PASSING LOTS OF FLATUS. TYLENOL PRN GIVEN X 1 THIS AM OTHERWISE NO FURTHER COMPLAINTS OF PAIN. SPOKE WITH PATIENTS SON THIS AM, UPDATE GIVEN.
[2019-11-16 20:28] VITALS: BP 143/56
--- NOTE | 2019-11-17 02:42 | NUR ---
ASSUMED CARE @ 1931-11/15-.AWAKE IN BED W/ HOB UP WATCHING TV.REINA BANDAGE LEFT FOREARM.BED ALARM ON ALREADY @ 1931.LE'S OFF BED.WANTS SLEEPING MED.DR HERNANDEZ CALLED @ 2148.RETURNED CALL @ 2154 & ORDER GIVEN FOR MELATONIN 10 MG ORAL HS PRN & given oral @ 224.appears sleeping @ -WEDNESDAY.ON HOURLY ROUNDS.WELDER DOING ODD HOUR ROUNDS.
--- NOTE | 2019-11-17 05:11 | NUR ---
SLEPT LATE @ 0000-11/16-WEDNESDAY.SLEEPING GOOD ALL NIGHT.USED BEDPAN W/ ASSIST X2.STEVENSON CARE DONE X2.MOISTURE BARRIER CREAM APPLIED TO DRY ABRASIONS RIGHT & LEFT COCCYX X2.NO BM YET FROM MIRALAx given 0N DAYSHIFT.SALINE LOCK CLOTTED WHEN FLUSHED & REMOVED @ 0400.TOOK 2 PIECES COOKIES & BLACK COFFEE HS SNACKS.
[2019-11-17 08:06] VITALS: BP 142/46
[2019-11-17 09:34] LABS: ABSOLUTE EOSINOPHILS 0.1 thou/uL (0.0-0.7); ABSOLUTE LYMPHOCYTES 0.7 thou/uL (0.8-5.3); ABSOLUTE MONOCYTES 0.4 thou/uL (0.0-1.2); ABSOLUTE NEUTROPHILS 5.2 thou/uL (1.6-8.1); BASOPHILS 0.6 %; EOSINOPHILS 1.3 %; HEMATOCRIT 22.8 % (37.0-47.0); HEMOGLOBIN 7.6 gm/dL (12.0-15.0); LYMPHOCYTES 10.2 %; MCH 29.8 pg (26.0-34.0); MCHC 33.4 g/dL (28.0-37.0); MCV 89.3 fL (80.0-100.0); MONOCYTES 6.7 %; MPV 7.4 fl. (7.2-11.1); NUCLEATED RBCS 0 /100WBC; PLATELET COUNT* 373 thou/uL (150-400); POLYS 81.2 %; RBC 2.56 mil/uL (4.20-5.00); RDW-CV 14.2 % (10.5-14.5); WBC 6.4 thou/uL (4.0-11.0)
[2019-11-17 09:52] LABS: ALBUMIN 2.3 g/dL (3.4-5.0); CALCIUM 8.4 mg/dL (8.5-10.1); POTASSIUM 3.9 mmol/L (3.5-5.1); TOTAL BILIRUBIN 0.5 mg/dL (<0.1-1.0); TOTAL PROTEIN 5.9 g/dL (6.4-8.2)
--- NOTE | 2019-11-17 19:20 | NUR ---
ASSESSMENT CHARTED. VSS. Q2H TURNS. RED SACRAL AREA. PICTURE IN CHART. TYLENOL FOR PAIN X1. DENIED NEED FOR INTERVENTION PAST THAT 1X DOSE. NO OTHER EVENTS DURING THIS SHIFT.
[2019-11-17 20:00] VITALS: BP 140/49
--- NOTE | 2019-11-17 20:20 | NUR ---
IN BED LAYING ON RIGHT SIDE WATCHING TV. LEFT HIP DRESSING DRY/INTACT. CALL LIGHT WITHIN REACH. TYLENOL GIVEN FOR COMPLAINT OF LEFT HIP PAIN RATED "8". TOOK MEDICATIONS WHOLE (EXCEPT FOR THE CIPRO WHICH WAS CUT IN HALF) A FEW AT A TIME WITH WATER.
--- NOTE | 2019-11-18 06:31 | NUR ---
RESTED ON/OFF. ASSISTED WITH REPOSITIONING. VOIDED PER BEDPAN AT BEDTIME AND AGAIN AT ABOUT 0400. GAVE TYLENOL AT 0433 FOR COMPLAINT OF LEFT HIP PAIN RATED "9" WITH RELIEF. HOURLY ROUNDING IN PROGRESS.
[2019-11-18 09:00] VITALS: BP 150/45
--- NOTE | 2019-11-18 18:30 | NUR ---
ALERT AND ORIENTED X4. UP WITH 1 ASSIST, GAIT BELT AND WALKER. USING PO AND PATCH PAIN MEDICATION TO HELP WITH PAIN. HAS BARRIER CREAM FOR SMALL OPEN AREA ON COCCYX AND RIGHT BUTTOCK. REPOSITIONED AT LEAST EVERY 2 HOURS OFF COCCYX AREA. CONTINENT OF BLADDER. DRESSING DRY AND INTACT OVER LEFT HIP INCISION AND LEFT ARM SKIN TEAR. ON PO ANTIBIODIC FOR UTI WITH NO ADVERSE REACTIONS OR SIDE EFFECTS. USES CALL LIGHT WHEN NEEDING ASSIST. BED ALARM AND CHAIR ALARMS
[2019-11-18 19:55] VITALS: BP 144/40
--- NOTE | 2019-11-18 20:00 | NUR ---
IN BED WATCHING TV. TYLENOL GIVEN FOR COMPLAINT OF LEFT HIP PAIN. LEFT HIP DRESSING DRY/INTACT. CALL LIGHT WITHIN REACH.
--- NOTE | 2019-11-19 05:44 | NUR ---
UP X ONE DURING THE NIGHT TO THE BEDSIDE COMMODE WITH MAX ASSIST OF 2. PATIENT THOUGHT SHE HAD TO HAVE A BM BUT DIDN'T. HAD DIFFICULTY GET TO SLEEP DESPITE BEING GIVEN TYLENOL AND MELATONIN. RELIEF OBTAINED AFTER ULTRAM GIVEN. HOURLY ROUNDING IN PROGRESS.
[2019-11-19 08:30] VITALS: BP 153/53
--- NOTE | 2019-11-19 17:36 | NUR ---
ALERT AND ORIENTED X4 WITH PERIODS OF FORGETFULNESS. TYLENOL GIVEN TO HELP WITH PAIN. DRESSING CLEAN DRY AND INTACT OVER LEFT HIP. LEFT ARM SKIN TEAR DRESSING CHANGED. REPOSITIONED AT LEAST EVERY 2 HOURS. BARRIER CREAM APPLIED TO BUTTOCK. HEEL ELEVATED OFF BED. UP WITH 1 ASSIST, GAIT BELT AND WALKER. USES CALL LIGHT TO ASK FOR ASSIST. FALL PRECAUTIONS IN PLACE. BED ALARM AND CHAIR ALARM USES.
[2019-11-20 01:10] VITALS: BP 178/37
--- NOTE | 2019-11-20 01:45 | NUR ---
ASSUMED CARE @ 1936-11/18-SUN.APPEARS SLEEPING ON HER LEFT SIDE W/ HOB UP. BED ALARM PUT ON @ 1936.EACH LE UP ON A PILLOW W/ HEELS OFF BED.WBAT LEFT LE. MEPILEX DRSGS X2 LEFT FOREARM.MELATONIN 10 MG ORAL GIVEN @ W/TYLENOL 2 TABS @ 2141.PULL UPS OFF @ 109.HOSP GOWN PUT ON @ 109.ON HOURLY ROUNDS.
--- NOTE | 2019-11-20 05:26 | NUR ---
SLEEPING ALREADY @ 1937 & 2227.AWAKE @ 2100,2200 & 0300.BRP X1.USED BSC X1. MOISTURE BARRIER CREAM APPLIED TO RT & LEFT COCCYX X2.TOOK ONE PIECE RAISIN CINNAMON BREAD & APPLE JUICE 120 ML HS SNACKS.SLEEPING MOST OF TIME DURING NIGHT.
[2019-11-20 05:50] VITALS: BP 134/37; BP 144/37
--- NOTE | 2019-11-20 07:05 | NUR ---
LAST BM 11/13-WEDNESDAY.CHECKED FOR IMPACTION @ 0550.REFUSED DUL SUP @ HS.WANTS TO SLEEP TONIGHT.DUL SUP GIVEN RECTALLY @ 0550.UP TO BSC 2ND TIME @ 0610. UNABLE TO PASS OUT STOOLS.MANUAL DISIMPACTION DONE & REMOVED LARGE,FORMED STOOLS.BRP W/ ASSIST X1 BEFORE HS.USED BSC X2.MOISTURE BARRIER CREAM APPLIED 3X TO OWEN.COCCYX.BP @ [id number].BP RE-CHECKED @ 0550-144/37.
[2019-11-20 09:15] VITALS: BP 163/41
--- NOTE | 2019-11-20 18:17 | NUR ---
ALERT AND ORIENTED X4. UP WITH 1 ASSIST, GAIT BELT AND WALKER. USING TYLENOL FOR LEFT HIP PAIN. LEFT HIP DRESSING DRY AND INTACT. DRESSING DRY AND INTACT OVER LEFT ARM SKIN TEAR. CONTINENT OF BOWEL AND BLADDER TODAY. CONTINUES ON PO ANTIBIODIC FOR UTI WITH NO ADVERSE REACTION. USES CALL LIGHT WITHIN REACH. FALL PRECAUTIONS IN PLACE, BED ALARM AND CHAIR ALARM USES.
[2019-11-20 19:59] VITALS: BP 136/30
--- NOTE | 2019-11-21 00:50 | NUR ---
ASSUMED CARE AT 1930. PATIENT RESTING IN BED AT CHANGE OF SHIFT. UP WITH ONE, GAIT BELT, WALKER. USES BSC. HAD ONE SMALL BM THUS FAR. TAKES PILLS WHOLE WITH WATER. WANTS "STRONG SLEEPING PILL" THIS EVENING. GIVEN TRAMADOL AND MELATONIN AT HS. DSSG TO SKIN TEAR TO LT ARM C/D/I. LT HIP DRESSING C/D/I. MOISTURE BARRIER APPLIED TO BILAT COCCYX AFTER USING COMMODE. HOURLY ROUNDS CONTINUE. BED ALARM ON. CALL LITE IN REACH.
--- NOTE | 2019-11-21 05:48 | NUR ---
SLEPT MOST OF THE NIGHT. REFUSED TURNS. LEGS POSITIONED WITH PILLOWS. VOIDED PER BSC. HOURLY ROUNDS CONTINUE. BED ALARM ON. CALL LITE IN REACH.
[2019-11-21 08:00] VITALS: BP 138/47
[2019-11-21 09:17] LABS: HEMATOCRIT 26.7 % (37.0-47.0); HEMOGLOBIN 8.7 gm/dL (12.0-15.0); MCH 29.8 pg (26.0-34.0); MCHC 32.5 g/dL (28.0-37.0); MCV 91.9 fL (80.0-100.0); MPV 6.8 fl. (7.2-11.1); RBC 2.91 mil/uL (4.20-5.00); RDW-CV 15.4 % (10.5-14.5); WBC 6.2 thou/uL (4.0-11.0)
[2019-11-21 09:19] LABS: CALCIUM 8.5 mg/dL (8.5-10.1); CREATININE 0.9 mg/dL (0.6-1.3); POTASSIUM 4.1 mmol/L (3.5-5.1)
--- NOTE | 2019-11-21 14:38 | NUR ---
WOUND NURSE: RECEIVED CONSULT TO ADDRESS LESIONS, BUT PATIENT REFUSING REPORTING SHE WANTS AN ENEMA NOW. THIS WAS REFERRED TO THE NURSE CARING FOR HER. WILL DEFER ASSESSMENT UNTIL A LATER DATE AT PATIENT REQUEST.
--- NOTE | 2019-11-21 17:12 | NUR ---
ASSUMMED CARE OF PT AT 0730, PT ALERT, SLOW TO ANSWER WHEN SPOKEN TOO, KEEPS EYES CLOSED AND AT TIMES DOES NOT ANSWER, PT STATES SHE IS TIRED AND WANTS TO SLEEP, PT TRANSFERS WITH SBA GB WALKER, C/O PAIN IN LEFT HIP, MEDICATED PER ORDER, APETITE DECREASED, PT C/O CONSTIPATION, FLEETS ENEMA GIVEN WITH SMALL AMOUNT OF HARD STOOL OUT, ADDITIONAL STOOL MANUALLY REMOVED, DRESSING TO LEFT HIP C/D/I, BUTTOCK REDDENED WITH DRY SCABBED AREA, BARRIER OINTMENT APPLIED AND PT REPOSTIONED EVERY 2 HOURS, PARTICIPATED IN ALL THERAPIES, HOURLY ROUNDING COMPLETED, ASSESSMENT COMPLETE, PT ASKED IF SHE WOULD LIKE ME TO CALL JUAN HER SON WITH AN UPDATE AND SHE STATED SHE DID NOT WANT ME TO CALL HIM HE WORRIES TOO MUCH AND SHE WOULD TALK WITH HIM AND IF HE HAD QUESTIONS SHE WOULD HAVE HIM CALL THE NURSE. WILL CONTINUE TO MONITOR.
[2019-11-21 19:48] VITALS: BP 166/54
--- NOTE | 2019-11-22 00:56 | NUR ---
ASSUMED CARE @ 1914-11/20-WEDNESDAY.APPEARS SLEEPING IN BED W/ HOB UP.BED ALARM ON ALREADY @ 1914.AWAKENED @ 1949 TO GET VS & ASSESSMENT.PULL UPS OFF @ 2049. WBAT LEFT LE.ASSIST W/ LEFT LE INTO & OUT OF BED.PRN MELATONIN 10 MG ORAL GIVEN @ 2121-PER PATIENT'S REQUEST.SEE PAIN MANAGEMENT @ 2122.EACH LE UP ON PILLOW.SLEEPING @ 2199.AWAKE @ -11/2151-UBR-OLBRJD BREAD & THEN TOOK H20. SLEEPING @ 0100.ON HOURLY ROUNDS.
--- NOTE | 2019-11-22 05:41 | NUR ---
SLEEPING ALREADY @ 1914.SLEEPING AGAIN SINCE 2199.AWAKE ONCE @ 0000-11/21-WED.- TO USE BSC W/ ASSIST.BRP X1.USED BSC X1.MOISTURE BARRIER CREAM APPLIED 2X TO RT & LEFT COCCYX AREAS.ATE 2 PIECES CINNAMON RAISIN BREAD & APPLE JUICE HS SNACKS.
[2019-11-22 08:00] VITALS: BP 149/42
--- NOTE | 2019-11-22 18:04 | NUR ---
ASSUMMED CARE OF PT AT 0730, PT ALERT, FORGETFUL, TRANSFERS WITH SBA, GB WALKER, PT ENCOURAGED TO AMBULATE TO TOILET BUT INSISTS ON USING BSC, UP TO VOID SEVERAL TIMES THIS SHIFT, ATTEMPTED TO OBTAIN UA BUT STOOL MIXED WITH URINE, PT AWARE OF NEED FOR SPECIMEN, PT C/O HIP PAIN, MEDICATED PER ORDER, LIDOCAINE PATCH APPLIED NEXT TO DRESSING, CONSULT PLACED TO ORTHO FOR FOLLOW UP AND REMOVAL OF DRESSING AND MARIBELL, BUTTOCKS RED WITH OPENED DRY BLISTER AND CHAFING, BARRIER OINTMENT APPLIED, REPOSTIONED EVERY 2 HOURS, TALKED WITH BOTH SONS THIS SHIFT STEVIE AND JUAN, AND GIVEN UPDATE, PT PARTICIPATED IN ALL THERAPIES, HOURLY ROUNDING COMPLETED, ASSESSMENT COMPLETE, WILL CONTINUE TO MONITOR.
[2019-11-22 19:40] VITALS: BP 139/34
--- NOTE | 2019-11-22 19:40 | NUR ---
SITTING UP IN RECLINER WITH LEGS ELEVATED WATCHING TV. IN GOOD SPIRITS. CALL LIGHT WITHIN REACH.
[2019-11-23 02:55] LABS: URINE BILIRUBIN NEGATIVE (Negative); URINE BLOOD NEGATIVE (Negative); URINE CLARITY CLEAR; URINE COLOR YELLOW; URINE GLUCOSE-RANDOM NEGATIVE (Negative); URINE KETONES NEGATIVE (Negative); URINE LEUKOCYTES-REFLEX NEGATIVE (Negative); URINE NITRITE-REFLEX NEGATIVE (Negative); URINE PROTEIN NEGATIVE (Negative); URINE SPECIFIC GRAVITY <= 1.005 (1.005-1.030); URINE UROBILINOGEN 0.2 E.U./dl (0.2-1.0)
--- NOTE | 2019-11-23 05:10 | NUR ---
UP X ONE DURING THE NIGHT TO BEDSIDE COMMODE TO VOID. RESTED ON/OFF. ASSISTED WITH REPOSITIONING SIDE TO SIDE DURING THE NIGHT. HOURLY ROUNDING IN PROGRESS.
[2019-11-23 08:00] VITALS: BP 152/55
[2019-11-23 09:34] LABS: HEMATOCRIT 25.8 % (37.0-47.0); HEMOGLOBIN 8.5 gm/dL (12.0-15.0); MCH 30.3 pg (26.0-34.0); MCV 91.8 fL (80.0-100.0); MPV 6.8 fl. (7.2-11.1); RBC 2.81 mil/uL (4.20-5.00); WBC 5.3 thou/uL (4.0-11.0)
[2019-11-23 09:45] LABS: CALCIUM 8.3 mg/dL (8.5-10.1); POTASSIUM 4.7 mmol/L (3.5-5.1)
--- NOTE | 2019-11-23 13:47 | NUR ---
BERTHA and Dr No met with pt after team conference yesterday and discussed reteam. BERTHA called pt son Sadiq today and reviewed team conference summary and plan for reteam with possible dc next if pt continues to make the progress and reaches goals. BERTHA discussed team's recommendation for family training and scheduled for Wednesday at 1 pm. SW to continue to follow to assist with safe dc planning. HH to be arranged at dc; pt/family preference is [facility].
--- NOTE | 2019-11-23 14:45 | NUR ---
I SPOKE WITH PT'S SON AND UPDATED HIM ON HER STATUS.
--- NOTE | 2019-11-23 17:30 | NUR ---
AM ASSESSMENT AND VITAL SIGNS COMPLETED DOCUMENTED. PT PARTICIPATED WITH ALL THERAPIES BUT REFUSED TO DO SOME OF THE THINGS THAT WERE PART OF THERAPY. SURGICAL DRESSING REMOVED FROM LEFT HIP, INCISION IS WELL APPROXIMATED AND HEALED, GLUE REMAINS INTACT. HIP XRAY DONE. FALL PRECAUTIONS AND HOURLY ROUNDING CONTINUE.
[2019-11-23 20:00] VITALS: BP 142/42
--- NOTE | 2019-11-24 05:44 | NUR ---
ASSUMED CARE AT 1920. ALERT AND ORIENTED. PLEASANT. WBAT LLE. LEFT HIP INCISION ROB. MIN ASSIST WITH GAIT BELT AND WALKER. UP TO BSC. BARRIER CREAM APPLIED TO BUTTOCKS. SLEEP AID GIVEN. PT SLEPT WELL. CALL LIGHT IN REACH AND BED ALARM ON.
--- NOTE | 2019-11-24 15:28 | NUR ---
WOUND NURSE: PATIENT SEEN TO ADDRESS SACRAL AND COCCYX WOUND: SACRUM IS PARTIAL THICKNESS TISSUE LOSS AND PRESNETS A HEALING BLISTER WITH PINK, NONGRANULATING TISSUE IN THE WOUND BED. MEASURES 1.5 X 2.7 X 0.1 CM. THERE IS NO ACTIVE DRAINAGE. COCCYX PRESENTS PARTIAL THICKNESS LESION MEASURING 1.5 X 0.3 X 0.1 CM, CONTAINS RED, TRANSLUCENT THIN DRIED SCAB OVER THE WOUND BED. THERE IS NO DRAINAGE FROM THIS LESION EITHER. CLEANSED WITH SOAP AND WATER, RINSED, THEN PATTED DRY. APPLIED SKIN PEP TO PERIWOUND TISSUE, THEN COVERED WITH EXUDERM LP, THEN SECURED IN PLACE WITH SURESITE TRANSPARENT DRESSING. DRESSING TO BE CHANGED EVERY 3 DAYS AND PRN. PATIENTY INSTUCTERD TO OFFLOAD WOUNDS MUCH POSSIBLE BY REPOSITIONING HERSELF FROM SIDE TO SIDE WHEN IN BED. WAFFLE CUSHION IN BEDSIDE CHAIR WHEN SITTING. PATIENT STATES SHE UNDERSTANDS.
--- NOTE | 2019-11-24 15:37 | NUR ---
AM ASSESSMENT AND VITAL SIGNS COMPLETED DOCUMENTED. PT CONTINUES TO MAKE SLOW PROGRESS TOWARD DISCHARGE GOALS. PT IS CONTINENT OF BOWEL AND BLADDER, AMBULATES WITH A WALKER AND IS SUPERVISION WITH TOILETING AND EATING. FALL PRECAUTIONS AND HOURLY ROUNDING CONTINUE.
[2019-11-24 20:10] VITALS: BP 163/52
--- NOTE | 2019-11-25 05:26 | NUR ---
ASSUMED PT CARE AT 1930. PT ALERT AND ORIENTED, POLITE AND COOPERATIVE WITH CARES. WBAT LLE. LEFT HIP INCISION ROB. UP TO BSC WITH MIN ASSIST, GAIT BELT AND WALKER. DRESSING TO BILAT BUTTOCKS INTACT. SLEEP AID GIVEN. USES CALL LIGHT APPROPRIATELY. CALL LIGHT IN REACH. BED ALARM ON FOR SAFETY. HOURLY ROUNDING IN PROGRESS, WILL CONTINUE TO MONITOR.
[2019-11-25 08:00] VITALS: BP 143/48
--- NOTE | 2019-11-25 17:40 | NUR ---
ASSUMMED CARE OF PT AT 0730, PT ALERT AND ORIENTED, PT TRANSFERS WITH SBA, GB WALKER, AMBULATED TO BATHROOM X 3 THIS SHIFT, AMBULATED IN HALLWAY X 2, C/O PAIN IN LEFT HIP, MEDICATED PER ORDER, TAKING FOOD AND FLUIDS WELL, UP IN CHAIR MUCH OF SHIFT REPOSTIONED EVERY 2 HOURS, WAFFLE CUSHION TO CHAIR, INCISION HEALING, DRESSING TO SACRAL AREA INTACT, LARGE BM X 1 THIS SHIFT, HOURLY ROUNDING COMPLETED, ASSESSMENT COMPLETE, WILL CONTINUE TO MONITOR.
[2019-11-25 19:25] VITALS: BP 146/37
--- NOTE | 2019-11-25 19:25 | NUR ---
SITTING UP IN RECLINER ON A CHAIR ALARM WITH LEGS ELEVATED AND WATCHING TV. AMBULATED TO THE BATHROOM AT SHIFT CHANGE WITH SBA, GAITBELT, WALKER TO THE BATHROOM TO VOID. CALL LIGHT WITHIN REACH. DECLINED OFFER OF A SNACK.
--- NOTE | 2019-11-26 04:53 | NUR ---
UP X ONE DURING THE NIGHT TO VOID. ASSISTED WITH REPOSITIONING. HOURLY ROUNDING IN PROGRESS.
[2019-11-26 07:39] VITALS: BP 170/52
--- NOTE | 2019-11-26 18:00 | NUR ---
ASSUMMED CARE OF PT AT 0730, PT ALERT AND ORIENTED, PT TRANSFERS WITH ASSIST OF 1, GB WALKER, AMBULATES TO BATHROOM TO VOID, C/O PAIN IN LEFT HIP, MEDICATED WITH SCHEDULED PAIN MEDS, LIDOCAINE PATCH TO LEFT THIGH, UP IN CHAIR MUCH OF SHIFT, REPOSITIONED EVERY 2 HOURS, DRESSING CHANGED TO SACRAL AREA, PHOTO TAKEN, DRESSING CHANGED TO SKIN TEAR ON LEFT ARM, BM X 2 THIS SHIFT, HIP PRECAUTIONS MAINTAINED, INCISION HEALING, SON JUAN CALLED AND MESSAGE LEFT FOR HIM TO CALL BACK IF HE WOULD LIKE AN UPDATE OR HAD ANY QUESTIONS OR CONCERNS, NO CALL RECIEVED.HOURLY ROUNDING COMPLETED, ASSESSMENT COMPLETE, WILL CONTINUE TO MONITOR.
[2019-11-26 19:50] VITALS: BP 142/42
--- NOTE | 2019-11-26 19:50 | NUR ---
SITTING UP IN RECLINER WATCHING TV. STATES HAD A GOOD DAY BUT WANTS TO GO TO BED. AMBULATED TO THE BATHROOM WITH SBA, GAITBELT, WALKER. HAD A LARGE LOOSE STOOL. DRESSING TO COCCYX DRY/INTACT. RIGHT ARM DRESSING TO SKIN TEAR DRY/INTACT. STATES LEFT HIP PAIN AT AN "8". WILL GIVEN TYLENOL AND PLACE A NEW LIDOCAINE PATCH PER NEW ORDER TO HAVE A PATCH BID NOW INSTEAD OF DAILY. WILL CONTINUE TO MONITOR. CALL LIGHT WITHIN REACH.
--- NOTE | 2019-11-27 05:21 | NUR ---
UP X ONE DURING THE NIGHT TO THE BATHROOM TO VOID. UP THIS MORNING TO THE BEDSIDE COMMODE TO VOID. COMPLAINING OF LEFT HIP PAIN RATED "10" THIS MORNING. HAS LIDOCAINE PATCH, SCHEDULED GABAPENTIN AND SCHEDULED TRAMADOL ORDERED. ASSISTED WITH REPOSITIONING. WILL CONTINUE TO MONITOR. HOURLY ROUNDING IN PROGRESS.
[2019-11-27 07:46] LABS: HEMATOCRIT 24.4 % (37.0-47.0); HEMOGLOBIN 7.9 gm/dL (12.0-15.0); MCH 29.6 pg (26.0-34.0); MCHC 32.6 g/dL (28.0-37.0); MCV 90.8 fL (80.0-100.0); MPV 6.6 fl. (7.2-11.1); RBC 2.69 mil/uL (4.20-5.00); RDW-CV 15.7 % (10.5-14.5); WBC 3.2 thou/uL (4.0-11.0)
[2019-11-27 07:52] LABS: CALCIUM 8.5 mg/dL (8.5-10.1); CREATININE 0.7 mg/dL (0.6-1.3); MAGNESIUM 1.9 mg/dL (1.8-2.4); POTASSIUM 4.2 mmol/L (3.5-5.1)
[2019-11-27 08:00] VITALS: BP 154/48
--- NOTE | 2019-11-27 18:30 | NUR ---
AM ASSESSMENT AND VITAL SIGNS COMPLETED DOCUMENTED. PT CONTINUES TO PROGRESS TOWARD DISCHARGE GOALS. I SPOKE WITH HER SON TODAY. FALL PRECAUTIONS AND HOURLY ROUNDING CONTINUE.
[2019-11-27 19:25] VITALS: BP 125/32
--- NOTE | 2019-11-27 19:25 | NUR ---
SITTING UP IN RECLINER ON A CHAIR ALARM WITH LEGS ELEVATED WATCHING TV. STATES HAD A GOOD DAY BUT READY FOR BED. AMBULATED TO THE BATHROOM WITH SBA, GAITBELT, WALKER. HAD A LARGE LOOSE GREEN BM. ASSISTED PATIENT WITH LAYING ON HER RIGHT SIDE. CALL LIGHT WITHIN REACH.
--- NOTE | 2019-11-28 05:01 | NUR ---
GAVE HYDROCODONE AT 2004 FOR COMPLAINT OF LEFT HIP PAIN RATED "10 1/2". RESTED QUIETLY SINCE THEN. HOURLY ROUNDING IN PROGRESS.
[2019-11-28 08:00] VITALS: BP 158/64
--- NOTE | 2019-11-28 18:27 | NUR ---
AM ASSESSMENT AND VITAL SIGNS COMPLETED DOCUMENTED. PT'S SON CAME IN TODAY FOR FAMILY TRAINING. PT IS SUPPOSED TO DISCHARGE ON WEDNESDAY, SNF VS HOME. FALL PRECAUTIONS AND HOURLY ROUNDING CONTINUE.
[2019-11-28 19:38] VITALS: BP 138/42
--- NOTE | 2019-11-29 01:25 | NUR ---
ASSUMED CARE @ 1924-11/27-.SITS IN RECLINER W/ LE'S UP-APPEARS SLEEPING. CHAIR ALARM ON ALREADY @ 1924.SEE PAIN MANAGEMENT @ 2048.HOB UP IN BED.HEELS OFF BED.BED ALARM PUT ON @ 2144.WEARS PULL UPS.PATIENT DOES NOT WANT TO BE AWAKENED @ -11/28-FOR SCHEDULED ULTRAM.ON HOURLY ROUNDS.
--- NOTE | 2019-11-29 05:35 | NUR ---
SLEEPING @ 1925 & FROM 2300 TO 0500 CONTINOUSLY.BRP W/ ASSIST X1.TOOK PEPSI W/ ONE PIECE COOKIE HS SNACKS.
[2019-11-29 08:36] VITALS: BP 157/32
--- NOTE | 2019-11-29 15:10 | NUR ---
BERTHA and Dr No met with pt to review team conference summary and plan for pt to transition to SNF at dc since pt is not able to dc home alone and the family training did not secure pt sons agreement or ability to care for their mother at home. Pt was hard of hearing but seemed to somewhat understand that she would need more rehab prior to returning home. BERTHA spoke with pt son Sadiq who said that he wished for more time on [facility] at [facility] but that if pt had to dc, he would only agree to a free standing SNF that was not a LTC facility. BERTHA checked [facility] but they are not in network with pt insurance. BERTHA informed pt son of this and he said that he would sooner take her home and provide 24/7 care indefinitely than have his mother go to a residential right now. Pt son requested SW try [facility] as it is one of the only other stand alone SNFs known in the area. SW to contact their admissions to determine if this would be a possibility. SW to continue to follow to assist with safe dc planning for as soon as can be arranged.
--- NOTE | 2019-11-29 16:46 | NUR ---
ASSSESSMENT COMPLETED DOCUMENTED THIS MORNING. PATIENT HAS BEEN UP AND PARTICIPATING WITH THERAPY, STATING "SHE REALLY WORKED ME OUT TODAY." SCHEDULED TRAMADOL 50MG GIVEN AT 1200 AND HYDROCODONE 5/325MG 1 TAB GIVEN AT 1520 FOR C/O PAIN IN LLE. NO CHANGES IN CONDITION NOTED.
[2019-11-29 19:25] VITALS: BP 136/42
--- NOTE | 2019-11-29 20:00 | NUR ---
UP IN RECLINER WATCHING TV. AMBULATED TO THE BATHROOM WITH SBA, GAITBELT, WALKER. HAD A SMALL BM. PT PROUD THAT SHE IS ABLE TO LIFT BOTH OF HER LEGS INTO BED WITHOUT ASSISTANCE. CALL LIGHT WITHIN REACH.
--- NOTE | 2019-11-30 05:13 | NUR ---
RESTED ON/OFF. ASSISTED WITH REPOSITIONING. PAIN MEDICATION GIVEN WITH SOME RELIEF. PATIENT LAST RATED PAIN AT "9" AT 0450. HOURLY ROUNDING IN PROGRESS.
[2019-11-30 07:54] LABS: ABSOLUTE LYMPHOCYTES 0.7 thou/uL (0.8-5.3); ABSOLUTE MONOCYTES 0.3 thou/uL (0.0-1.2); ABSOLUTE NEUTROPHILS 2.9 thou/uL (1.6-8.1); BASOPHILS 0.6 %; EOSINOPHILS 1.2 %; HEMATOCRIT 28.5 % (37.0-47.0); HEMOGLOBIN 9.4 gm/dL (12.0-15.0); LYMPHOCYTES 17.7 %; MCH 29.9 pg (26.0-34.0); MCHC 32.9 g/dL (28.0-37.0); MONOCYTES 6.7 %; MPV 7.3 fl. (7.2-11.1); NUCLEATED RBCS 0 /100WBC; PLATELET COUNT* 320 thou/uL (150-400); POLYS 73.8 %; RBC 3.13 mil/uL (4.20-5.00); RDW-CV 15.8 % (10.5-14.5)
[2019-11-30 08:00] VITALS: BP 152/55
--- NOTE | 2019-11-30 12:25 | NUR ---
SW faxed referral for SNF to [facility] and left a voicemail for their admissions. SW to continue to follow to assist with safe dc planning.
--- NOTE | 2019-11-30 16:44 | NUR ---
AM ASSESSMENT AND VITAL SIGNS COMPLETED DOCUMENTED. PT IS SBA/ SUPERVISION WITH AMBULATING, TRANSFERS, TOILETING AND EATING. FALL PRECAUTIONS AND HOURLY ROUNDING CONTINUE. CASE MANAGEMENT SPOKE WITH HER SON TODAY.
[2019-11-30 20:22] VITALS: BP 145/38
--- NOTE | 2019-12-01 04:57 | NUR ---
ASSUMED PT CARE AT 1930. PT ALERT AND ORIENTED X4, POLITE AND COOPERATIVE WITH CARES. PT SITTING UP IN RECLINER WATCHING TELEVISION. UP TO BATHROOM WITH SBA, GAIT BELT AND WALKER. NO STOOL THIS SHIFT. 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 PT SLEPT WELL OVERNIGHT. CALL LIGHT IN REACH, BED ALARM ON FOR SAFETY. HOURLY ROUNDING IN PROGRESS, WILL CONTINUE TO MONITOR.
[2019-12-01 07:55] VITALS: BP 157/49
--- NOTE | 2019-12-01 15:31 | NUR ---
WOUND NURSE: PATIENT SEEN FOR FOLLOW UP ASSESSMENT PERTAINING TO SACRAL WOUND. THIS IS RESOLVED WITH INTACT SCAR TISSUE. WOUND CARE DISCONTINUED TO SACRUM. PATIENT WITH OLD SKIN TEAR ON THE LEFT ARM. THIS IS NEARLY HEALED WITH >90% INTACT SCAR TISSUE, <10% RED, NONGRANULATING TISSUE, SCANT SEROUS DRAINAGE. CLEANSED WITH WOUND CLEANSER AND GAUZE. APPLIED OIL EMULSION GAUZE UNDER BORDERED FOAM DRESSING. THIS WAS TOLERATED WELL BY PATIENT. PATIENT INSTRUCTED ON LIMITING SITTING IN ONE POSITION TO ONE HOUR OR LESS. PATIENT STATES SHE UNDERSTANDS.
--- NOTE | 2019-12-01 16:08 | NUR ---
BERTHA followed up with [facility] admissions who have sent information to insurance for auth but have not yet received response for approval. Possibility for Wednesday approval and a bed is available for pt on Wednesday. BERTHA called pt son and informed him of dc plan by voicemail and he called back and left a voicemail stating that he understood the message. SW informed pt that dc might be on Wednesday. SW to continue to follow to assist with safe dc planning.
--- NOTE | 2019-12-01 17:48 | NUR ---
ASSESSMENT COMPLETED DOCUMENTED THIS MORNING. PATIENT CONTINUES TO REQUIRE MUCH ENCOURAGEMENT AND MOTIVATION TO PARTICIPATE WITH THERAPY. FREQUENTLY REQUESTING PAIN MEDS EVEN AFTER SHE HAS JUST REC'D THEM. INCISION ON LEFT HIP IS C/D/I WITH NO S/S OF INFECTION NOTED. APPETITE IS POOR AND HAS BEEN RETURNING HER TRAYS TO DIETARY STATING "THIS IS NOT WHAT I ORDERED." PATIENT HAS NOT BEEN MAKING ORDERS TO DIETARY PRIOR TO MEAL SERVICE, WILL ENCOURAGE PATIENT TO BEGIN ORDERING HER MEALS.
[2019-12-01 20:00] VITALS: BP 154/41
--- NOTE | 2019-12-02 05:02 | NUR ---
ASSUMED PT CARE AT 1930. PT SITTING UP IN RECLINER WATCHING TELEVISION. PT ALERT AND ORIENTED X4, POLITE AND COOPERATIVE WITH CARES. PT UP TO BATHROOM TO VOID WITH ASSIST OF ONE, GAIT BELT AND WALKER X2. NO STOOL THIS SHIFT. PAIN MEDICATIONS GIVEN PER MAR FOR LEFT HIP PAIN. INCISION TO LEFT HIP ROB, NO S/S OF INFECTION. USES CALL LIGHT APPROPRIATELY. BED ALARM ON FOR SAFETY. HOURLY ROUNDING IN PROGRESS, WILL CONTINUE TO MONITOR.
[2019-12-02 08:12] VITALS: BP 139/38
--- NOTE | 2019-12-02 16:08 | NUR ---
ASSUMED CARE OF PT AROUND 0730 THIS AM. REFER TO ASSESSMENT. PT PAIN MANAGED WITH PRN HYDROCODONE AND SCHEDULED TRAMADOL THIS SHIFT. PT UP OOB FOR ALL MEALS. TOLERATING DIET. NO OTHER CONCERNS AT THIS TIME. CLWR. WCTM.
[2019-12-02 19:42] VITALS: BP 145/40
--- NOTE | 2019-12-03 04:40 | NUR ---
ASSUMED PT CARE AT 1930. PT ALERT AND ORIENTED X4, POLITE AND COOPERATIVE WITH CARES. PT SITTING UP IN RECLINER AT SHIFT CHANGE. PT UP TO BATHROOM TO VOID WITH ASSIST OF ONE, GAIT BELT AND WALKER. STOOL X1 THIS SHIFT. PAIN MEDICATIONS GIVEN PER MAR FOR LEFT HIP PAIN. INCISION TO LEFT HIP ROB, NO S/S OF INFECTION. USES CALL LIGHT APPROPRIATELY. BED ALARM ON FOR SAFETY. HOURLY ROUNDING IN PROGRESS.
[2019-12-03 07:52] VITALS: BP 177/60
--- NOTE | 2019-12-03 16:54 | NUR ---
AM ASSESSMENT AND VITAL SIGNS COMPLETED DOCUMENTED. PT HAS BEEN PLEASANT AND COOPERATIVE. PT CLEANED UP AND GOT DRESSED WITH SUPERVISION THIS AM. PT IS READY FOR DISCHARGE WHEN PLACEMENT IS DECIDED ON. FALL PRECAUTIONS AND HOURLY ROUNDING CONTINUE.
[2019-12-03 20:00] VITALS: BP 152/46
--- NOTE | 2019-12-04 05:21 | NUR ---
ASSUMED CARES AT 1920. ALERT AND ORIENTED. PLEASANT. SCHEDULED PAIN MEDS GIVEN FOR LEFT LEG PAIN. INCISION SITE VOCATIONAL TEACHER AND HEALING. SBA WITH GAIT BELT AND WALKER. UP TO BR. SLEPT MOST OF THE NIGHT. CALL LIGHT IN REACH AND BED ALARM ON.
[2019-12-04 07:51] VITALS: BP 160/47
[2019-12-04] MEDS ORDERED: MELATONIN5 M1 PO (15:31)
--- NOTE | 2019-12-04 17:06 | NUR ---
BERTHA followed up with [facility] admissions who stated that insurance denied pt SNF and that they could offer peer to peer. Dr No agreed to do peer to peer and the insurance still denied, son given option to appeal. SW called and spoke with pt son who has talked with [employer]ron who is assisting with appeal. SW to follow up again in the morning with SNF, pt son and team to assist with finalizing safe dc plan.
--- NOTE | 2019-12-04 17:22 | NUR ---
ALERT AND ORIENTED X4. UP WITH 1 ASSIST, GAIT BELT AND WALKER. INCISION LEFT HIP HEALED. USES SCHEDULED PAIN MEDICATION. REMAINS ON TOTAL HIP PRECAUTIONS. CONTINENT OF BOWEL AND BLADDER. USES CALL LIGHT WITHIN REACH. FALL PRECAUTION IN PLACE. BED ALARM AND CHAIR ALARM USED.
[2019-12-04 20:23] VITALS: BP 186/56
--- NOTE | 2019-12-05 04:53 | NUR ---
ASSUMED PT CARE AT 1930. PT ALERT AND ORIENTED X4, POLITE AND COOPERATIVE WITH CARES. PT SON STEVIE CALLED AND SAID IT HAD BEEN A CONFUSING AND FRUSTRATING DAY WHAT WITH PT TRANSFER PLACEMENT BEING DENIED. THIS RN REASSURED HIM THAT PT WAS HER USUAL PLEASANT SELF AND DID NOT SEEM DISTRESSED ABOUT THE SITUATION. PT UP WITH SBA, GAIT BELT AND WALKER TO BATHROOM TO VOID. PT ON SCHEDULED PAIN MEDS FOR LEFT LEG PAIN. 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 SLEPT WELL OVERNIGHT. USES CALL LIGHT APPROPRIATELY. HOURLY ROUNDING IN PROGRESS, WILL CONTINUE TO MONITOR.
[2019-12-05 07:46] VITALS: BP 151/45
[2019-12-05 08:08] VITALS: BP 151/45
--- NOTE | 2019-12-05 17:01 | NUR ---
SW continuing to follow to assist with finalizing safe dc plan/placement. SW spoke with pt son, SMV, and team about pending insurance appeal of denial and working with pt son and SMV on possible RICKI if SNF ultimately still not approved.
[2019-12-05 19:00] VITALS: BP 108/54
--- NOTE | 2019-12-06 04:51 | NUR ---
ASSUMED PT CARE AT 1930. PT ALERT AND ORIENTED X4, POLITE AND COOPERATIVE WITH CARES. PT SITTING UP IN RECLINER AT SHIFT CHANGE. PT UP TO BATHROOM WITH SBA, GAIT BELT AND WALKER. STOOL X1 THIS SHIFT. PT ON SCHEDULED PAIN MEDICATION FOR LEFT LEG PAIN. HYDROCODONE X1 FOR LEFT LEG PAIN. INCISION TO LEFT LEG ROB AND HEALING. PT SLEPT WELL OVERNIGHT. PT PLACEMENT STILL IN FLUX PENDING APPEAL. USES CALL LIGHT APPROPRIATELY. HOURLY ROUNDING IN PROGRESS, WILL CONTINUE TO MONITOR.
[2019-12-06 08:07] VITALS: BP 150/78
--- NOTE | 2019-12-06 18:01 | NUR ---
BERTHA and Dr No met with pt to review team conference summary and plan for pt to dc as soon as final decision about pt insurance approving SNF or not is received. Pt/family appeal decision to be received by tomorrow. RICKI at [facility] to do onsite visit to determine if they would be able to accept pt to [facility] or not. BERTHA spoke with pt son Sadiq and informed of above and BERTAH will continue to follow to assist with safe dc planning.
[2019-12-06 19:30] VITALS: BP 169/47
--- NOTE | 2019-12-07 01:29 | NUR ---
ASSUMED CARE @ 1944-12/05-WED.SITS IN RECLINER W/ LE'S UP ON PHONE.CHAIR ALARM ON ALREADY @ 1944.WEARS PULL UPS.FIRST DOSE AMBIEN 5 MG ORAL GIVEN @ 2107. 2ND DOSE AMBIEN HELD @ 2199.PATIENT ALREADY SLEEPING @ 2200.ON HOURLY ROUNDS. LIGHT CLEANER DOING ODD HOUR ROUNDS.
[2019-12-07 06:26] VITALS: BP 160/43
--- NOTE | 2019-12-07 06:43 | NUR ---
SLEEPING SINCE 2199 & SLEPT GOOD ALL NIGHT.REFUSED HS SNACK.BRP X2 W/ SBA. BP @ 193.RA-169/47.LA-170/48.BP RE-CHECKED @ [id number]/43-68.
[2019-12-07 08:00] VITALS: BP 154/41
--- NOTE | 2019-12-07 17:32 | NUR ---
ASSUMMED CARE OF PT AT 0730, PT ALERT AND ORIENTED, FORGETFUL, PT TRANSFERS WITH SBA, GB WALKER, APETITE DECREASED, ENCOURAGED TO EAT, AMBULATES TO BATHROOM TO VOID, BM X 1 THIS SHIFT, INCISON TO LEFT HIP HEALED, LIDOCAINE PATCH APPLIED, SCHEDULED PAIN MEDICATION GIVEN, UP IN CHAIR MOST OF SHIFT, PARTICIPATED IN ALL THERAPIES, HOURLY ROUNDING COMPLETED, MOLD INSPECTOR TALKED WITH SON AND UPDATED HIM ON DISCHARGE PLANS, HE ALSO TALKED WITH PT AND PT STATED NURSE DID NOT NEED TO CALL HIM, ASSESSMENT COMPLETE, WILL CONTINUE TO MONITOR.
[2019-12-07 20:21] VITALS: BP 154/41
--- NOTE | 2019-12-08 01:26 | NUR ---
ASSUMED CARE @ 1926-12/06-.SITS IN RECLINER W/ LE'S UP WATCHING TV. CHAIR ALARM ALREADY ON @ 1926.HAD AMBIEN 5 MG EACH @ 2056 & 2154.WEARS PULL UPS.HOB UP IN BED.BED ALARM PUT ON @ 2099.ON HOURLY ROUNDS.GAUGE CONTROLLER DOING ODD HOUR ROUNDS.
[2019-12-08] MEDS ORDERED: NEURONTIN 300M300 M2 PO (04:29)
--- NOTE | 2019-12-08 06:28 | NUR ---
SLEEPING LATE @ 0000-12/07-FRI & SLEPT GOOD ALL NIGHT.BRP W/SBA X1.WEARS PULL UPS.TOOK ONLY 25% PEACHES HS SNACK.
[2019-12-08 08:25] VITALS: BP 149/42
[2019-12-08 14:44] VITALS: BP 149/42
--- NOTE | 2019-12-08 16:20 | NUR ---
WOUND NURSE: PATIENT SEEN FOR F/U ASSESSMENT OF L ARM SKIN TEAR NOW MEASURING 0.3 X 0.3 X 0.1 CM. ALMOST FULLY EPITHELIALIZE, SCANT SEROUS DRAINAGE. WILL CONTINUE WITH SAME DRESSING CHANGE UNTIAL HEALED.
--- NOTE | 2019-12-08 16:38 | NUR ---
DC was pending pt insurance denied SNF then the [facility] agreed to pay for pt SNF stay and BERTHA faxed the information to [facility] as well as the dc orders and med list. BERTHA informed Nir to call nurses' desk if able to arrange after hours or over the weekend and nurse will call pt son Sadiq when able to provide final dc time/details. [facility] [phone]
--- NOTE | 2019-12-08 16:55 | NUR ---
ASSUMMED CARE OF PT AT 0730, PT ALERT AND ORIENTED, FORGETFUL, TRANSFERS WITH ASSIST OF 1, GB WALKER, AMBULATES TO BATHROOM, TAKING FOOD AND FLUIDS WELL, INCISION TO LEFT HIP HEALED, LIDOCAINE PATCH APPLIED TO HIP, MEPILEX TO LEFT ARM SKIN TEAR, UP IN CHAIR MOST OF SHIFT, PARTICIPATED IN ALL THERAPIES, HOURLY ROUNDING COMPLETED, ASSESSMENT COMPLETE, DISCHARGE PENDING TO [facility], AWAITING CALL, SON AND PT AWARE OF DISCHARGE PLAN, WILL CONTINUE TO MONITOR.
--- NOTE | 2019-12-08 20:03 | NUR ---
A MAN FROM [facility] TRANSPORT HERE TO TAKE PATIENT TO [facility]. PATIENT LEFT VIA WHEELCHAIR. TARAN GERARDO ASSISTED WITH TRANSPORTING PATIENT'S BELONGINGS. JAY ENVELOPE WITH PATIENT'S INFORMATION GIVEN TO TRANSPORT MAN.
== END 2019-12-08 20:02 | DRG 535 ==
LOC: M.REH 17:02
PROVIDERS: Internal Medicine; Nurse Practitioner; ADMIT Physical Medicine & Rehabilitation; ATTEND Physical Medicine & Rehabilitation
DX: S72.002A Fracture of unspecified part of neck of left femur, initial encounter for closed fracture (principal); J96.01 Acute respiratory failure with hypoxia; G92 Toxic encephalopathy; N39.0 Urinary tract infection, site not specified; W18.39XA Other fall on same level, initial encounter; Y93.89 Activity, other specified; Y92.89 Other specified places as the place of occurrence of the external cause; Y99.8 Other external cause status; I10 Essential (primary) hypertension; K21.9 Gastro-esophageal reflux disease without esophagitis; M06.9 Rheumatoid arthritis, unspecified; M81.0 Age-related osteoporosis without current pathological fracture; G62.9 Polyneuropathy, unspecified; I48.0 Paroxysmal atrial fibrillation; I34.0 Nonrheumatic mitral (valve) insufficiency; D64.9 Anemia, unspecified; E78.2 Mixed hyperlipidemia; S51.812A Laceration without foreign body of left forearm, initial encounter; B96.5 Pseudomonas (aeruginosa) (mallei) (pseudomallei) as the cause of diseases classified elsewhere; Z20.828 Contact with and (suspected) exposure to other viral communicable diseases; Z88.1 Allergy status to other antibiotic agents; Z88.8 Allergy status to other drugs, medicaments and biological substances; Z90.49 Acquired absence of other specified parts of digestive tract; Z85.038 Personal history of other malignant neoplasm of large intestine